=== PATIENT | male | born 1975 | race Caucasian/White ===

== ENCOUNTER 2021-03-03 11:49 | Emergency (ER) | payer OTHER, SELFPAY ==
[2021-03-03 11:49] VITALS: BP 134/73; PULSE 66; RESP 15; TEMP 36.2; O2SAT 98; BMI 22.4
--- NOTE | 2021-03-03 12:30 | CT_ITS ---
STUDY: CT BRAIN WITHOUT CONTRAST REASON FOR EXAM: Male, 45 years old. Numbness left side RADIATION DOSAGE (If Supplied By Facility): CTDIvol = ( 38.43 ) mGy, DLP = ( 741.51 ) mGycm TECHNIQUE: Transaxial CT imaging of the brain was performed without administration of intravenous contrast material. Individualized dose optimization techniques were used for this CT. COMPARISON: No relevant priors. FINDINGS: Normal soft tissue structures. Normal calvarium. Normal size ventricles and extra-axial spaces for the patient''s age. Normal white matter tracts of the cerebral hemispheres. Normal basal ganglia and thalami. Normal brainstem. Normal cerebellum. There is no intracranial hemorrhage. There are no findings of an acute ischemic infarction. Normal visualized paranasal sinuses. CT/Brain/Head without Contrast IMPRESSION: Normal unenhanced CT scan of the brain. Electronically Signed: Eddie Velazquez MD at 13:19 EDT , Service support ,
[2021-03-03 12:54] LABS: Absolute Lymphocyte Count 1.18 X10^3/uL (0.83-4.51); Absolute Neutrophil Count 4.2 X10^3/uL (2.0-7.7); Basophil# 0.03 X10^3/uL; Basophil% 0.5 % (0-1); Eosinophil# 0.13 X10^3/uL; Eosinophils% 2.1 % (0-5); Hematocrit 44.4 % (40-54); Hemoglobin 14.6 g/dL (13.0-16.5); Lymphocyte # 1.18 X10^3/ul (0.83-4.51); Lymphocyte % 19.5 % (19-41); Mean Corp Hgb Conc 32.9 g/dL (32-36); Mean Corpuscular Hgb 29.7 pg (27.0-32.0); Mean Corpuscular Volume 90.2 fL (80-94); Mean Platelet Vol. 10.9 fl (6.2-12.0); Monocyte# 0.54 X10^3/uL; Monocyte% 8.9 % (0-10); NRBC Flagged by Analyzer 0 % (0-5); Neutrophil # 4.15 X10^3/uL (2.7-7.7); Neutrophil % 68.7 % (47-70); Platelet Count 198 K/mm3 (150-450); RBC Distribution Width CV 12.8 % (11.6-14.6); RBC Distribution Width SD 42.1 fl (35.1-43.9); Red Blood Count 4.92 M/mm3 (4.6-6.2); White Blood Count 6.1 K/mm3 (4.4-11.0)
--- NOTE | 2021-03-03 13:43 | EX.ED.DYSGE1 ---
HPI History of Present Illness Chief Complaint: Numb/Ting Detail of Chief Complaint: Left-sided facial numbness Informant: patient Onset/Context/Timing Onset: Today and Hours Context: Sudden Onset Timing: Intermittent Quality: Tingling numbness over left cheek Location: Left maxillary region Current Severity: Mild Maximum Severity: Moderate Worsened by: Possibly sleeping on his hand Relieved by: Nothing Associated Symptoms Associated Symptoms: Had numbness in his arm. Please read HPI Narrative Narrative: Patient is a healthy 45-year-old male present on no medications who presents because of left-sided facial numbness upon awakening. Resolved after 2 minutes. He then felt an unusual sensation over the left maxillary area. There was no complaint of headache, ocular, visual or auditory symptoms. He denied trouble with speech or swallowing. He denied clumsiness. He then had numbness in his left arm which may be in a radicular pattern. He has had this in the past due to problems with his neck and he was last manipulated on February 27. He denies trouble with balance or falling. There is no history of head trauma. Prior similar symptoms: No Recent Illness/Hospitalization: No PFSH PFSH no medical history Allergy/AdvReac Type Severity Reaction Status Date / Time No Known Allergies Allergy Verified 03/03/21 11:52 Surgical History (Updated 03/03/21 @ 12:48 by Loretta Poole RN) History of vasectomy no surgical history Social History (Updated 03/03/21 @ 13:[address] Clyde Marcelo MD) household members: spouse and children Smoking Status: Never smoker alcohol intake: current alcohol intake frequency: a few times a month substance use type: does not use ROS ROS ED Constitutional Constitutional ED: Denies chills, fever(s), subjective, sweats or weight loss Eyes Eyes: Denies blurry vision, change in vision or diplopia ENT ENT ED: Denies ear pain, rhinorrhea or sore throat Cardiovascular Cardiovascular: Denies chest pain, orthopnea, palpitations or racing heartbeat Respiratory/Chest Respiratory/Chest: Denies cough, dyspnea, orthopnea or sputum Gastrointestinal Gastrointestinal: Denies abdominal pain, nausea or vomiting Genitourinary Genitourinary ED: Denies dysuria, hematuria or urinary frequency Musculoskeletal Musculoskeletal: Denies arthralgias, back pain, myalgias or neck pain Integumentary Denies rash Neurologic Neurologic: Reports paresthesias; Denies headache(s) or weakness Allergic/Immunologic Allergic/Immunologic ED: Denies urticaria EXAM Physical Exam Const Vital Signs: 03/03/21 11:49 Temperature 97.2 F L Temperature Source Temporal Pulse Rate 66 Respiratory Rate 15 Blood Pressure 134/73 H Blood Pressure Mean 93 Pulse Ox 98 Oxygen Delivery Method Room Air HEENT Reports TM's clear and moist mucous membranes HEENT Narrative: Ears normal. There is no asymmetry of the face. There is no evidence of trauma. Tympanic Membrane ED: Yes TM's clear Eyes PERRL and EOMs intact bilaterally Eyes Narrative: There is no APD. There is no nystagmus. There is no subconjunctival hemorrhage noted. General Eye ED: Negative for pale conjunctiva or scleral icterus Neck no lymphadenopathy, supple and no JVD Neck Narrative: There is no carotid bruit. Resp normal respiratory effort and clear to auscultation bilaterally Cardio regular rate, regular rhythm, S1 normal heart sound, S2 normal heart sound and no murmurs GI normal to inspection, nondistended, normoactive bowel sounds and non-tender Palpation: soft Back/Spine no CVA tenderness Cervical Spine: Negative for cervical spine tenderness Thoracic Spine / Upper Back: Negative for thoracic spinal tenderness or paraspinal muscle tenderness Extremity normal to inspection General Extremety ED: Negative for edema or tenderness General Extremity: Negative for edema Neuro oriented x3, CN's II-XII intact bilaterally and no sensory deficits noted Neuro Narrative: There is no dysmetria. There is no clonus. There is no Babinski sign noted. Speech is normal. Fluency is normal. Sensorium / Orientation: alert Motor Exam: strength 5/5 throughout Psych mental status grossly normal Skin no rashes or lesions noted MDM MDM MDM Narrative Medical decision making narrative: Patient with paresthesia. This may represent an early onset Cord[place]'s palsy. May also represent atypical presentation for CVA. CT of the head was obtained as well as appropriate blood work. Patient's work-up is negative. Plan is to discharge to home with appropriate home-going instructions. Lab Data Attestation: I reviewed the patient's lab results. Labs: Laboratory Results - last 24 hr 03/03/21 12:45 WBC 6.1 RBC 4.92 Hgb 14.6 Hct 44.4 MCV 90.2 MCH 29.7 MCHC 32.9 RDW Std Deviation 42.1 RDW Coeff of Catrachito 12.8 Plt Count 198 MPV 10.9 Immature Gran % (Auto) 0.300 Neut % (Auto) 68.7 Lymph % (Auto) 19.5 [place] % (Auto) 8.9 Eos % (Auto) 2.1 Baso % (Auto) 0.5 Absolute Neuts (auto) 4.2 Absolute Lymphs (auto) 1.18 Nucleated RBC % 0 Radiography Diagnostic Testing: Radiology Impression Brain CT 03/03/21 12:30 IMPRESSION: Normal unenhanced CT scan of the brain. Electronically Signed: Eddie Velazquez MD at 13:19 EDT , Service support , Discharge Plan Triage Chief Complaint: Numb/Ting ED Provider: Clyde Marcelo Dx/Rx/DC Orders Clinical Impression: Facial paresthesia, Arm paresthesia, left Instructions: ED Paraesthesias Primary Care Provider: Elias Puri Referrals: Elias Puri MD [Primary Care Provider] - 3-5 Days if not improving Disposition Disposition: Home, self care
[2021-03-03 14:29] VITALS: BP 118/71; PULSE 59; RESP 18
== END 2021-03-03 14:30 | disposition home or self-care (01) ==
PROVIDERS: Emergency Provider Emergency Medicine; PCP Family Medicine
DX: R20.2 Paresthesia of skin (principal)
CPT/HCPCS: 70450; 85025; 99283; A4216

== ENCOUNTER → 2021-06-16 | Outpatient (CLI) | payer OTHER, SELFPAY | END | disposition home or self-care (01) | LOC: LABSPEC 08:30 | PROVIDERS: PCP Family Medicine; Referring Provider Physician Assistant Surgical; Visit Provider Physician Assistant Surgical | DX: Z20.822 Contact with and (suspected) exposure to COVID-19 (principal) | CPT/HCPCS: 87635; U0005; U0003 ==

== ENCOUNTER 2021-11-23 11:59 | Emergency (ER) | payer OTHER, SELFPAY ==
[2021-11-23 11:59] VITALS: BP 122/73; PULSE 71; RESP 16; TEMP 36.7; O2SAT 100; BMI 23.1
--- NOTE | 2021-11-23 12:23 | RAD_ITS ---
HISTORY: leg trauma. TECHNIQUE: XR Tibia/Fibula 2 Views. Number of images including paperwork: 5. COMPARISON: None. FINDINGS: OSSEOUS STRUCTURES: No acute fracture. Mineralization unremarkable. JOINT SPACES: Maintained. No dislocation. RAD/Tibia & Fibula 2 Views IMPRESSION: No acute fracture or dislocation identified in the right leg. at 1309 Reported and signed by: Jacy Watson MD Electronically Signed: Jacy Watson MD at 13:08 EST ,
--- NOTE | 2021-11-23 12:23 | ED.VIS.FALL ---
HPI HPI - Fall History of Present Illness Chief Complaint: Fall Informant: patient Occured/Mechanism Occurred: Days Usually ambulates: Without assistance Pain/Injury Pain Location: lower extremity Quality of Pain: Sharp Current Severity: Mild Maximum Severity: Moderate Associated Symptoms Associated Symptoms: Negative for Parasthesias, Weakness, Loss of function, Inability to ambulate, Loss of consciousness and Amnesia Narrative Narrative: 46-year-old male was working on a trailer on Wednesday it was icy slipped and his leg when he fell banged the trailer and he has pain and swelling to his right lower leg. Is initially did not think much of it but has been walking on it more the last 2 days he has had increased pain and went to have evaluated. He denies any other injuries. Did not hit his head, chest or abdomen. No LOC. Prior similar symptoms: No Recent Illness/Hospitalization: No PFSH PFSH Medical History no medical history no medical history Home Medications NK 06/14/21 [History Last Taken Unknown] Allergy/AdvReac Type Severity Reaction Status Date / Time No Known Allergies Allergy Verified 11/23/21 12:02 Surgical History History of vasectomy Social History household members: spouse and children Smoking Status: Never smoker alcohol intake: current alcohol intake frequency: a few times a month substance use type: does not use ROS ROS ED ROS Narrative No recent illness. Review of Systems ROS Unobtainable: Denies due to encephalopathy Constitutional Constitutional ED: Denies fever(s) Eyes Eyes: Denies change in vision ENT ENT ED: Denies ear pain Cardiovascular Cardiovascular: Denies chest pain Respiratory/Chest Respiratory/Chest: Denies dyspnea Gastrointestinal Gastrointestinal: Denies abdominal pain Genitourinary Genitourinary ED: Denies dysuria Musculoskeletal Musculoskeletal: Denies myalgias Integumentary Denies rash Neurologic Neurologic: Denies headache(s) Psychiatric Psychiatric: Denies depression Endocrine Endocrinology: Denies polyuria Hematologic/Lymphatic Hematologic/Lymphatic: Denies easy bruising Allergic/Immunologic Allergic/Immunologic ED: Denies urticaria EXAM Physical Exam Narrative Exam Narrative: Further male no acute distress vital signs stable afebrile. HEENT exam unremarkable atraumatic. Pupils round reactive light. C-spine nontender. Trachea midline. Back nontender. Lungs clear to auscultation bilaterally. Chest wall nontender. Heart regular rhythm rate about 70 no murmur. Abdomen soft nontender no trauma. Pelvic girdle intact. Moving all four extremities. His right lower leg midportion on the medial aspect there is a contusion and abrasion. No bleeding. Small area of bruising. No gross bony deformity. He has full flexion-extension of his right hip, knee ankle and foot. Dorsi plantarflexion intact. He has tenderness at the site. No bony deformity. Const Vital Signs: 11/23/21 11:59 Temperature 98.1 F Temperature Source Temporal Pulse Rate 71 Respiratory Rate 16 Blood Pressure 122/73 H Blood Pressure Mean 89 Pulse Ox 100 Oxygen Delivery Method Room Air Positive well nourished and well developed; Negative for obese, cachectic, contractures or unkempt General Appearance ED: well developed and NAD; Negative for unkempt, cachectic or contractures Nutritional Appearance: Negative for cachectic or obese HEENT Reports normocephalic atraumatic; Negative for trauma or tenderness Eyes PERRL and EOMs intact bilaterally Neck full ROM, no lymphadenopathy and supple General: Negative for tenderness Chest Wall inspection of chest normal and palpation of chest normal Resp normal respiratory effort, no retractions and clear to auscultation bilaterally Auscultation: Negative for rales, rhonchi or wheezes Cardio regular rate, regular rhythm, S1 normal heart sound, S2 normal heart sound and no murmurs GI non-tender, non-distended and no masses Auscultation: normoactive bowel sounds Palpation: soft; Negative for guarding or rebound tenderness present Back/Spine no CVA tenderness General Back: Negative for CVA tenderness Cervical Spine: Negative for cervical spine tenderness Thoracic Spine / Upper Back: Negative for thoracic spinal tenderness Lumbar Spine / Lower Back: Negative for lumbar spinal tenderness or paraspinal muscle tenderness Extremity normal to inspection, full ROM, no calf tenderness and no pedal edema Extremity Narrative: Right lower leg medial aspect midportion contusion and abrasion. No bleeding. Small hematoma. Mild tenderness. No bony deformity. Normal range of motion. Neurovascular intact. Neuro oriented x3, CN's II-XII intact bilaterally, moves all extremities and no focal motor deficits Neuro Narrative: GCS 15. Sensorium / Orientation: alert, oriented to person, oriented to place and oriented to time; Negative for orientation impaired, confused, lethargic or stuporous Psych mental status grossly normal and thought process normal Appearance: Negative for unkempt Skin Lesions: no lesions and No lesion noted Rashes: no rashes and No rashes noted Trauma: abrasion MDM MDM MDM Narrative Medical decision making narrative: Patient fell on Wednesday hit his right leg against a trailer and has pain and mild swelling. X-ray will be obtained of the right tib-fib. Repeat exam doing well. Discharged home. Radiography Diagnostic Testing: Right tib-fib x-ray two views interpreted by myself shows no acute abnormality. No fracture. Discharge Plan Triage Chief Complaint: Fall ED Provider: Sameer Cohn Dx/Rx/DC Orders Clinical Impression: Contusion of right lower extremity Instructions: ED Contusion, Lower Extremity Prescriptions: No Action NK RF: 0 Primary Care Provider: Elias Puri Referrals: Elias Puri MD [Primary Care Provider] - 1 Week if not improving Activity Restrictions/Additional Instructions: Ice and elevate. Motrin and Tylenol for pain. Keep the wound clean and apply antibiotic ointment. Disposition Disposition: Home, Self Care
== END 2021-11-23 12:55 | disposition home or self-care (01) ==
PROVIDERS: Emergency Provider Emergency Medicine; PCP Family Medicine; Visit Provider Emergency Medicine
DX: S80.11XA Contusion of right lower leg, initial encounter (principal); M79.89 Other specified soft tissue disorders; W00.0XXA Fall on same level due to ice and snow, initial encounter; W01.198A Fall on same level from slipping, tripping and stumbling with subsequent striking against other object, initial encounter
CPT/HCPCS: 73590; 99282

== ENCOUNTER 2022-01-26 09:09 | Day surgery (SDC) | payer OTHER, SELFPAY ==
--- NOTE | 2022-01-26 09:21 | HP.PCM_ITS ---
HPI - General HPI Narrative NIESHA VALENTINE, is a 46 M who presents for screening colonoscopy. Patient never had previous colonoscopy. Denies a family history of colon cancer?patient's father did have part of his colon removed in his 70s but it was benign/precancerous per patient. Patient previously had a contrast study in his 20s sounds like upper and barium enema. Patient denies any chronic abdominal pain/nausea/vomiting/reflux. Patient's bowel movements daily denies any blood. [facility] Medical History (Updated 01/26/22 @ 09:[address] Maura Bryson MD) Alcohol use Dietary restriction History of IBS Leg cramps Non-smoker Wears glasses Home Medications fluticasone propionate [Flonase Allergy Relief] 1 spray INTRANASAL DAILY 01/23/22 [History Last Taken Unknown] hyoscyamine sulfate 0.125 mg PO PRN PRN 01/23/22 [History Last Taken Unknown] Allergy/AdvReac Type Severity Reaction Status Date / Time No Known Allergies Allergy Verified 01/26/22 09:45 Surgical History (Updated 01/23/22 @ 09:10 by Lorena Trivedi) History of vasectomy Hx of wisdom tooth extraction Social History household members: spouse and children Smoking Status: Never smoker alcohol intake: current alcohol intake frequency: a few times a month substance use type: does not use Past Medical/Surgical History Planned Operation Planned Operative Procedure/s: CSCOPE OA Previous Hospitalizations/Surgeries HX Hospitalizations: No Any Problems With Anesthesia: No You/Your Family Experience Fever (Hyperthermia) With Anes: No Cholinesterase deficiency: No Cardiovascular Hx Heart Attack: No Hx Hypertension: No Respiratory Hx Chronic Obstructive Pulmonary Disease (COPD): No Hx Asthma: No Hx Emphysema: No Hx Sleep Apnea: No Hx Respiratory Tract Infection/Cold (presently): No Do You Snore Loudly (louder than talking or can be heard): No Do You Often Feel Tired/ Fatigued/ Sleepy Dring Daytime?: No Has Anyone Observed You Stop Breathing During Sleep?: No Result (for STOP score): Negative Smoking Status: Never smoker Neurological Hx Seizures: No Does patient have nerve stimulator: No Reproduction : No Allergies No Known Allergies Allergy (Verified 01/26/22 09:45) Discharge Is Pt Admitted From a Intermediate, or a Senior Living: No After D/C, Where Do you Plan to Go: Return Home Physical Exam Const alert, oriented x3 and no apparent distress HEENT normocephalic and head/scalp atraumatic Resp normal respiratory effort Cardio regular rate GI soft to palpation and non-tender; Negative for non-distended Palpation: Negative for guarding Extremity no clubbing, cyanosis or edema Neuro CN's II-XII intact bilaterally Psych mental status grossly normal Assessment & Plan Assessment/Plan (1) Screening for colon cancer: Procedure Criteria Type of Procedure Procedure Type: Elective Elective Risks - COVID COVID Risk Discussion: The surgeon/proceduralist and patient have discussed in detail the risk of exposure to and/or potential harm posed by the COVID-19 virus with having a surgery/procedure at this time versus the risk of delaying the surgery/procedure. It is not possible to know either the risk of delaying the surgery or procedure or chance of getting an infection with perfect accuracy, but a joint decision was made between the patient and the surgeon/proceduralist to proceed at this time with the scheduled surgery/procedure as indicated on the consent form. Surgery Risks - Colonoscopy Risks Include but are not Limited To: Risks include but are not limited to: Bleeding, perforation requiring further surgery, inability to complete colonoscopy requiring barium enema.
[2022-01-26 09:46] VITALS: BP 120/70; PULSE 64; RESP 18; TEMP 36; O2SAT 95; BMI 22.4
[2022-01-26] MEDS: Lactated Ringers 1,000 ML 15 ML IV (09:50)
[2022-01-26 10:27] VITALS: BP 110/69; BP 120/70; PULSE 65; RESP 16; TEMP 36.8; O2SAT 98
--- NOTE | 2022-01-26 10:27 | OP.CCLET_ITS ---
01/26/2022 Elias Puri Re : Colonoscopy procedure for Jose Enrique Mcqueen Dear Jaxson This procedure was performed on Wednesday, January 26, 2022. My impressions and recommendations are as follows: Impressions : - Hemorrhoids found on perianal exam. - Non-bleeding internal hemorrhoids. - The entire examined colon is normal. - No specimens collected. Recommendations : - Discharge patient to home. - Resume previous diet. - Continue present medications. - Repeat colonoscopy in 10 years for screening purposes. My findings are described in the full procedure note, which is enclosed. If I can be of further assistance, please feel free to contact me at Doctor phone number(s): , Work: . Sincerely, MD Maura Taylor MD 01/26/2022 10:27:16 AM This report has been signed electronically.
--- NOTE | 2022-01-26 10:27 | OP.COLON_ITS ---
Patient Name: Jose Enrique Mcqueen Procedure Date: 01/26/2022 9:55 AM Date of : 1975 Age: 46 Procedure: Colonoscopy Indications: Screening for colorectal malignant neoplasm Providers: Maura Bryson MD Medicines: Monitored Anesthesia Care Patient Profile: This is a 46 year old male. Last Colonoscopy: none. The patient's first colonoscopy is today. Complications: No immediate complications. Procedure: Pre-Anesthesia Assessment: - Prior to the procedure, a History and Physical was performed, and patient medications and allergies were reviewed. The patient's tolerance of previous anesthesia was also reviewed. The risks and benefits of the procedure and the sedation options and risks were discussed with the patient. All questions were answered, and informed consent was obtained. Prior Anticoagulants: The patient has taken no previous anticoagulant or antiplatelet agents. ASA Grade Assessment: Per anesthesia. After reviewing the risks and benefits, the patient was deemed in satisfactory condition to undergo the procedure. After I obtained informed consent, the scope was passed under direct vision. Throughout the procedure, the patient's blood pressure, pulse, and oxygen saturations were monitored continuously. The colonoscope was introduced through the anus and advanced to the cecum, identified by the appendiceal orifice, ileocecal valve and palpation. The colonoscopy was performed without difficulty. The patient tolerated the procedure well. The quality of the bowel preparation was good. Scope In: 10:04:41 AM Scope Withdrawal Time 0 hours 8 minutes 49 seconds Scope Out: 10:23:25 AM Total Procedure Duration Time 0 hours 18 minutes 44 seconds Findings: Hemorrhoids were found on perianal exam. Non-bleeding internal hemorrhoids were found. The hemorrhoids were Grade I (internal hemorrhoids that do not prolapse). The entire examined colon appeared normal. Impression: - Hemorrhoids found on perianal exam. - Non-bleeding internal hemorrhoids. - The entire examined colon is normal. - No specimens collected. Recommendation: - Discharge patient to home. - Resume previous diet. - Continue present medications. - Repeat colonoscopy in 10 years for screening purposes. Procedure Code(s): --- Professional --- G0121, PT, Colorectal cancer screening; colonoscopy on individual not meeting criteria for high risk Diagnosis Code(s): --- Professional --- Z12.11, Encounter for screening for malignant neoplasm of colon K64.0, First degree hemorrhoids CPT copyright 2017 [employer]. All rights reserved. The codes documented in this report are preliminary and upon client care consultant review may be revised to meet current compliance requirements. MD Maura Taylor MD 01/26/2022 10:27:16 AM This report has been signed electronically. Number of Addenda: 0 Note Initiated On: 01/26/2022 9:55 AM
[2022-01-26 10:30] VITALS: BP 107/70; BP 120/70; PULSE 63; RESP 16; O2SAT 98
[2022-01-26 10:35] VITALS: BP 113/66; BP 120/70; PULSE 73; RESP 16; O2SAT 100
[2022-01-26 10:40] VITALS: BP 106/71; BP 120/70; PULSE 57; RESP 16; TEMP 36.7; O2SAT 99
[2022-01-26 10:59] VITALS: BP 120/70
== END 2022-01-26 11:25 | disposition home or self-care (01) ==
LOC: EN 09:17 → AC 09:19
PROVIDERS: PCP Family Medicine; Referring Provider Family Medicine; Visit Provider Surgery
PROC: 0DJD8ZZ Inspection of Lower Intestinal Tract, Via Natural or Artificial Opening Endoscopic (ICD-10-PCS; CPT 45378; principal; 2022-01-26 10:25)
DX: Z12.11 Encounter for screening for malignant neoplasm of colon (principal); K64.0 First degree hemorrhoids; Z87.19 Personal history of other diseases of the digestive system
CPT/HCPCS: 45378; 87426; J7120; J2405

== ENCOUNTER → 2024-11-29 | Outpatient (CLI) | payer OTHER, SELFPAY ==
[2024-11-29 12:10] LABS: Color, Urine Yellow (Yellow); Glucose, Dipstick Normal (Normal); Ketone-Dipstick Negative (Negative); Leukocyte Esterase-Dipstick Negative /ul (Negative); Nitrite-Dipstick Negative (Negative); Occult Blood-Urine Negative /ul (Negative); Protein-Dipstick Negative (Negative); Specific Gravity, Urine 1.005 (1.002-1.030); Urine Bilirubin Dipstick Negative (Negative); Urine Clarity Clear (Clear); Urine Urobilinogen Normal (Normal)
[2024-11-29 12:33] LABS: Absolute Lymphocyte Count 1.51 X10^3/uL (0.83-4.51); Absolute Neutrophil Count 2.8 X10^3/uL (2.0-7.7); Basophil# 0.03 X10^3/uL; Basophil% 0.6 % (0-1); Eosinophil# 0.09 X10^3/uL; Eosinophils% 1.9 % (0-5); Hematocrit 44.7 % (40-54); Hemoglobin 14.7 g/dL (13.0-16.5); Lymphocyte # 1.51 X10^3/ul (0.83-4.51); Lymphocyte % 31.3 % (19-41); Mean Corp Hgb Conc 32.9 g/dL (32-36); Mean Corpuscular Hgb 29.8 pg (27.0-32.0); Mean Corpuscular Volume 90.7 fL (80-94); Monocyte% 8.3 % (0-10); NRBC Flagged by Analyzer 0 % (0-5); Neutrophil # 2.78 X10^3/uL (2.7-7.7); Neutrophil % 57.7 % (47-70); Platelet Count 195 K/mm3 (150-450); RBC Distribution Width CV 13.2 % (11.6-14.6); RBC Distribution Width SD 43.5 fl (35.1-43.9); Red Blood Count 4.93 M/mm3 (4.6-6.2); White Blood Count 4.8 K/mm3 (4.4-11.0)
[2024-11-29 13:20] LABS: ALB/GLOB Ratio 1.7 RATIO (0.9-2.4); AST(SGOT) 24 U/L (<=37); Alanine Aminotransfer ALT/SGPT 25 U/L (<=46); Albumin, Serum 4.5 g/dL (3.5-5.0); Alkaline Phosphatase 51 U/L (40-129); Anion Gap 11 (5-15); BUN 16 mg/dL (4-19); BUN/Creat Ratio 18.7 RATIO (10-20); Calcium,Total 9.7 mg/dL (7.6-11.0); Chloride 104 mmol/L (98-108); Cholesterol 204 mg/dL (<=200); Creatinine, Serum 0.87 mg/dL (0.70-1.20); EST Glomerular Filtration Rate 105 (>60); Globulin 2.7 g/dL (2.2-4.2); Glucose 88 mg/dL (70-99); High Density Lipoprotein 89 mg/dL; Low Density Lipoprotein Calc. 103 mg/dL; PSA,Total - Annual Screen 0.64 ng/mL (0.02-4.00); Potassium 4.9 mmol/L (3.3-5.1); Protein, Total 7.2 g/dL (5.9-8.4); Sodium Level 142 mmol/L (133-145); Total Bilirubin 0.57 mg/dL (0.00-1.30); Triglycerides 59 mg/dL; Very Low Density Lipoprotein 12 mg/dL (5-40); cholesterol:hdl ratio screen 2.29
== END | disposition home or self-care (01) ==
LOC: BFHLAB 09:15
PROVIDERS: PCP Family Medicine; Visit Provider Family Medicine
DX: Z00.00 Encounter for general adult medical examination without abnormal findings (principal); Z12.5 Encounter for screening for malignant neoplasm of prostate
CPT/HCPCS: 36415; 80053; 80061; 81002; 84153; 84443; 85025; G0103

== ENCOUNTER → 2025-04-16 | Outpatient (CLI) | payer OTHER, SELFPAY ==
--- NOTE | 2025-04-16 08:55 | US_ITS ---
PROCEDURE: TESTICULAR WITH ARTERIAL FLOW 04/16/2025 REASON FOR EXAM: TESTICULAR LUMP; Left Side TECHNIQUE: TESTICULAR WITH ARTERIAL FLOW COMPARISON: None. FINDINGS: Bilateral testes have a normal symmetric sonographic appearance. Homogeneous parenchymal echotexture. Normal symmetric blood flow bilaterally on color Doppler. Small simple appearing cystic focus within the periphery of the left testicle measuring up to 5 mm, benign. The right testicle measures 4.3 x 2.9 x 2.1 cm. The left testicle measures 4.2 x 3.2 x 2.5 cm. Bilateral epididymi have a normal symmetric appearance, with symmetric vascular flow on color Doppler. There is a simple appearing right epididymal head cyst measuring up to 0.7 cm. Normal physiologic amount of fluid around both testes. No extratesticular mass. No evidence for varicocele on either side. Mild nonspecific generalized scrotal subcutaneous edema. US/Testicular with Arterial Flow IMPRESSION: No significant abnormality. Small 5 mm simple cyst within the periphery of the left testicle, which may reflect a palpable abnormality as per the clinical history. No follow-up indicated. Reading Location: [id number]
--- OUTSIDE RECORDS SUMMARY | 2025-04-16 13:10 | XMS RPT_ITS | CCD ---
Author Organization [facility] Care Team Providers Care Venue Manager Name Role Phone Dr. Elias Puri Primary Care Provider [phone] Dr. Elias Puri Referring Provider Nurse, Surgery Attending Provider Unavailable Dr. Maura Bryson Attending Provider [phone] Dr. Maura Bryson Other Provider Dr. Elias Puri MD Primary Care Provider Unava ilable Dr. Jae Evans DO Attending Provider [phone] Lamberto Claire Attending Unavailable Elias Puri Referring Unavailable Elias Puri Primary Care Unavailable Jae Evans Attending Unavailable Elias Puri Primary Care Unavailable Jae Evans Attending Unavailable Jae Evans Primary Care Unavailable Jae Evans Referring Unavailable Medications Current Medications Medication Drug Class(es) Dates Sig (Normalized) Sig (Original) fluticasone propionate 0.05 mg/actuat metered dose nasal spray (2 sources) Corticosteroid Start: 01-23-2022 Fluticasone Propionate (Flonase Allergy Relief) 50 mcg/actuation Orange,Suspension Active 1 SPRAY INTRANASAL DAILY January 23, 2022 9:01am Start: 01-23-2022 Fluticasone Pr opionate (Flonase Allergy Relief) 50 mcg/actuation Orange,Suspension Active 1 NMA INTRANASAL DAILY January 23, 2022 12:00am hyoscyamine sulfate 0.125 mg oral tablet (2 sources) Start: 01-23-2022 Hyoscyamine Ruiz lfate Active 0.125 MG PO NEEDED January 23, 2022 9:01am Problems Problem Classification Problem Date Documented Date Episodic/Chronic Administrative/social admission (2 sources) Administrative reason for encounter; Translations: [Encounter for examination for driving license] 08-05-2020 Episodic Immunizations and screening for infectious disease (2 sources) Contact with or exposure to other viral diseases; Translations: [Exposure to COVID-19 virus] 06-14-2021 Episodic Other male genital disorders (1 source) Other specified disorders of the male genital organs; Translations: [Other specified disorders of the male genital organs] Onset: 04-12-2025 Episodic Other nervous system disorders (2 sources) Facial paresthesia; Translations: [Paresthesia of skin] 03-03-2021 Episodic Other nervous system disorders (2 sources) Paresthesia of left upper limb; Translations: [Paresthesia of skin] 03-03-2021 Episodic Other screening for suspected conditions (not mental disorders or infectious disease) (3 sources) Patient encounter status; Translations: [Encounter for screening for malignant neoplasm of colon] Episodic Superficial injury; contusion (2 sources) Contusion of lower limb; Translations: [Contusion of right lower leg, initial encounter] 12-01-2021 Episodic Results Test Name Value Interpretation Reference Range Facility Absolute neutrophil countOrd ered By: Jae Evans on 11-29-2024 Neutrophils (Bld) [#/Vol] 2.8 10*3/uL 2.0-7.7 [facility] Anion gap in Serum or Plasma Ordered By: Jae Evans on 11-29-2024 Anion gap [Moles/Vol] 11 mmol/L 5-15 [facility] BUN/creatinine ratioOrdered By: Jae Evans on 11-29-2024 Urea nitrogen/Creatinine [Mass ratio] 18.7 mg/mg 10-20 [facility] Basophil percentageOrdered B y: Jae Evans on 11-29-2024 Basophils/100 WBC (Bld) 0.6 % 0-1 [facility] Bilirubin Test strip Ql (U)O rdered By: Jae Evans on 11-29-2024 Bilirubin Ql (U) Negative Negative [facility] Bilirubin, totalOrdered By: Jae Evans on 11-29-2024 Bilirubin [Mass/Vol] 0.57 mg/dL 0.00-1.30 [facility] CBC W/Diff, Automatedon Absolute Lymph 1.51 X10 3/uL Normal 0.83-4.51 [facility] Comment on above: Performed By: #### L 501.5960, L100.0100, L400.2010, L500.4100, L500.4050, L501.9520 #### [facility] [address] [place], [address] Absolute Neut 2.8 X10 3/uL Normal 2.0-7.7 [facility] Comment on above: Performed By: #### L 501.9910, L100.0100, L400.2010, L500.4100, L500.4050, [id number] #### [facility] [address] [place], [address] Basophils/100 WBC (Bld) 0.6 % Normal 0-1 [facility] Comment on above: Performed By: #### L 501.9910, L100.0100, L400.2010, L500.4100, L500.4050, [id number] #### [facility] [address] [place], [address] Eosinophils/100 WBC (Bld) 1.9 % Normal 0-5 [facility] Comment on above: Performed By: #### L 501.9910, L100.0100, L400.2010, L500.4100, L500.4050, L501.9520 #### [facility] [address] [place], [address] Erythrocyte distribution width (RBC) [Ratio] 13.2 % Normal 11.6-14.6 [facility] Comment on above: Performed By: #### L 501.9910, L100.0100, L400.2010, L500.4100, L500.4050, [id number] #### [facility] [address] [place], [address] Hematocrit (Bld) [Volume fraction] 44.7 % Normal 40-54 [facility] Comment on above: Performed By: #### L 501.9910, L100.0100, L400.2010, L500.4100, L500.4050, [id number] #### [facility] [address] [place], [address] Hemoglobin (Bld) [Mass/Vol] 14.7 g/dL Normal 13.0-16.5 [facility] Comment on above: Performed By: #### L 501.9910, L100.0100, L400.2010, L500.4100, L500.4050, [id number] #### [facility] [address] [place], [address] IG% 0.200 Normal 0.0-0.9 [facility] Comment on above: Result Comment: IG% - Immature Granulocytes (promyelocytes, myelocytes and metamyelocytes) > 1% indicates that a LEFT SHIFT is Present. Performed By: #### L 501.9910, L100.0100, L400.2010, L500.4100, L500.4050, L501.9520 #### [facility] [address] [place], [address] Lymphocytes/100 WBC (Bld) 31.3 % Normal 19-41 [facility] Comment on above: Performed By: #### L 501.9910, L100.0100, L400.2010, L500.4100, L500.4050, [id number] #### [facility] [address] [place], [address] MCH (RBC) [Entitic mass] 29.8 pg Normal 27.0-32.0 [facility] Comment on above: Performed By: #### L 501.9910, L100.0100, L400.2010, L500.4100, L500.4050, [id number] #### [facility] [address] [place], [address] MCHC (RBC) [Mass/Vol] 32.9 g/dL Normal 32-36 [facility] Comment on above: Performed By: #### L 501.9910, L100.0100, L400.2010, L500.4100, L500.4050, [id number] #### [facility] [address] [place], [address] MCV (RBC) [Entitic vol] 90.7 fL Normal 80-94 [facility] Comment on above: Performed By: #### L 501.9910, L100.0100, L400.2010, L500.4100, L500.4050, [id number] #### [facility] [address] [place], [address] Monocytes/100 WBC (Bld) 8.3 % Normal 0-10 [facility] Comment on above: Performed By: #### L 501.9910, L100.0100, L400.2010, L500.4100, L500.4050, [id number] #### [facility] [address] [place], [address] Neutrophils/100 WBC (Bld) 57.7 % Normal 47-70 [facility] Comment on above: Performed By: #### L 501.9910, L100.0100, L400.2010, L500.4100, L500.4050, [id number] #### [facility] [address] [place], [address] Nucleated RBC (Bld) [#/Vol] 0 10*3/uL Normal 0-5 [facility] Comment on above: Performed By: #### L 501.9910, L100.0100, L400.2010, L500.4100, L500.4050, [id number] #### [facility] [address] [place], [address] Platelet mean volume (Bld) [Entitic vol] 12.0 fL Normal 6.2-12.0 [facility] Comment on above: Performed By: #### L 501.9910, L100.0100, L400.2010, L500.4100, L500.4050, [id number] #### [facility] [address] [place], [address] Platelets (Bld) [#/Vol] 195 10*3/uL Normal 150-450 [facility] Comment on above: Performed By: #### L 501.9910, L100.0100, L400.2010, L500.4100, L500.4050, [id number] #### [facility] [address] [place], [address] RBC (Bld) [#/Vol] 4.93 10*6/uL Normal 4.6-6.2 [facility] Comment on above: Performed By: #### L 501.9910, L100.0100, L400.2010, L500.4100, L500.4050, [id number] #### [facility] [address] [place], [address] RDW SD 43.5 fl Normal 35.1-43.9 [facility] Comment on above: Performed By: #### L 501.9910, L100.0100, L400.2010, L500.4100, L500.4050, [id number] #### [facility] [address] [place], [address] WBC (Bld) [#/Vol] 4.8 10*3/uL Normal 4.4-11.0 [facility] Comment on above: Performed By: #### L 501.9910, L100.0100, L400.2010, L500.4100, L500.4050, [id number] #### [facility] [address] [place], [address] Calculated very low density lipoprotein (VLDL) cholesterol measurementOrdered By: Jae Evans on 11-29-2024 VLDL Cholesterol 12 mg/dL 5-40 [facility] Carbon dioxide, total [Moles /volume] in Central venous bloodOrdered By: Jae Evans on 11-29-2024 CO2 [Moles/Vol] 27.0 mmol/L 21.0-32.0 [facility] Chloride assayOrdered By: Shellie Evans on 11-29-2024 Chloride [Moles/Vol] 104 mmol/L 98-108 [facility] Comprehensive Metabolic Prof ilon 11-29-2024 Albumin [Mass/Vol] 4.5 g/dL Normal 3.5-5.0 [facility] Comment on above: Performed By: #### L 501.9910, L100.0100, L4, L500.4100, L500.4050, [id number] #### [facility] [address] [place], [address] Albumin/Globulin [Mass ratio] 1.7 {ratio} Normal 0.9-2.4 [facility] Comment on above: Performed By: #### L 501.9910, L100.0100, L400.2010, L500.4100, L500.4050, [id number] #### [facility] [address] [place], [address] ALK PHOS 51 U/L Normal 40-129 [facility] Comment on above: Performed By: #### L 501.9910, L100.0100, L4, L500.4100, L500.4050, [id number] #### [facility] [address] [place], [address] ALT [Catalytic activity/Vol] 25 U/L Normal <=46 [facility] Comment on above: Performed By: #### L 501.9910, L100.0100, L400.2010, L500.4100, L500.4050, [id number] #### [facility] [address] [place], [address] AST [Catalytic activity/Vol] 24 U/L Normal <=37 [facility] Comment on above: Performed By: #### L 501.9910, L100.0100, L4, L500.4100, L500.4050, [id number] #### [facility] [address] [place], [address] Bilirubin [Mass/Vol] 0.57 mg/dL Normal 0.00-1.30 [facility] Comment on above: Performed By: #### L 501.9910, L100.0100, L4, L500.4100, L500.4050, [id number] #### [facility] [address] [place], [address] BUN/CRE 18.7 RATIO Normal 10-20 [facility] Comment on above: Performed By: #### L 501.9910, L1.99, L4, L500.4100, L500.4050, [id number] #### [facility] [address] [place], [address] Calcium [Mass/Vol] 9.7 mg/dL Normal 7.6-11.0 [facility] Comment on above: Performed By: #### L 501.9910, L100.99, L4, L500.4100, L500.4050, [id number] #### [facility] [address] [place], [address] Chloride [Moles/Vol] 104 mmol/L Normal 98-108 [facility] Comment on above: Performed By: #### L 501.9910, L100.0100, L4, L500.4100, L500.4050, [id number] #### [facility] [address] [place], [address] CO2 [Moles/Vol] 27.0 mmol/L Normal 21.0-32.0 [facility] Comment on above: Performed By: #### L 501.9910, L100.0100, L400.2010, L500.4100, L500.4050, [id number] #### [facility] [address] [place], [address] Creatinine [Mass/Vol] 0.87 mg/dL Normal 0.70-1.20 [facility] Comment on above: Performed By: #### L 501.9910, L100.0100, L400.2010, L500.4100, L500.4050, [id number] #### [facility] [address] [place], [address] GAP 11 Normal 5-15 [facility] Comment on above: Performed By: #### L 501.9910, L100.0100, L400.2010, L500.4100, L500.4050, L501.9520 #### [facility] [address] [place], [address] GFR/1.73 sq M.predicted among non-blacks MDRD (S/P/Bld) [Vol rate/Area] 105 mL/min/{1.73_m2} Normal >60 [facility] Comment on above: Result Comment: mL/m in/1.73m2 CKD-EPI Creatinine Equation (2020) Performed By: #### L 501.9910, L100.0100, L400.2010, L500.4100, L500.4050, L501.9520 #### [facility] [address] [place], [address] Globulin (S) [Mass/Vol] 2.7 g/dL Normal 2.2-4.2 [facility] Comment on above: Performed By: #### L 501.9910, L100.0100, L400.2010, L500.4100, L500.4050, L501.9520 #### [facility] [address] [place], [address] Glucose [Mass/Vol] 88 mg/dL Normal 70-99 [facility] Comment on above: Performed By: #### L 501.9910, L100.0100, L400.2010, L500.4100, L500.4050, L501.9520 #### [facility] [address] [place], [address] Potassium [Moles/Vol] 4.9 mmol/L Normal 3.3-5.1 [facility] Comment on above: Performed By: #### L 501.9910, L100.0100, L400.2010, L500.4100, L500.4050, [id number] #### [facility] [address] [place], [address] Sodium [Moles/Vol] 142 mmol/L Normal 133-145 [facility] Comment on above: Performed By: #### L 501.9910, L100.0100, L400.2010, L500.4100, L500.4050, L501.9520 #### [facility] [address] [place], [address] T PROT 7.2 g/dL Normal 5.9-8.4 [facility] Comment on above: Performed By: #### L 501.9910, L100.0100, L400.2010, L500.4100, L500.4050, L501.9520 #### [facility] [address] [place], [address] Urea nitrogen [Mass/Vol] 16 mg/dL Normal 4-19 [facility] Comment on above: Performed By: #### L 501.9910, L100.0100, L400.2010, L500.4100, L500.4050, L501.9520 #### [facility] [address] [place], [address] Eosinophil percentageOrdered By: Jae Evans on 11-29-2024 Eosinophils/100 WBC (Bld) 1.9 % 0-5 [facility] Erythrocyte distribution wid th ratioOrdered By: Jae Evans on 11-29-2024 Erythrocyte distribution width (RBC) [Ratio] 13.2 % 11.6-14.6 [facility] Erythrocyte distribution wid th standard deviationOrdered By: Jae Evans on 11-29-2024 Erythrocyte distribution width (RBC) [Entitic vol] 43.5 fL 35.1-43.9 [facility] GFR/1.73 sq M.predicted abbi g non-blacks MDRD (S/P/Bld) [Vol rate/Area]Ordered By: Jae Evans on 11-29-2024 Estimated GFR (MDRD) Non-Af Amer [address] [facility] Comment on above: mL/min/1.73m2 CKD-EP I Creatinine Equation (2020) Glucose Ql (U)Ordered By: Shellie Evans on 11-29-2024 Urine Glucose (UA) Normal mg/dl Normal [facility] Hematocrit Auto (Bld) [Volum e fraction]Ordered By: Jae Evans on 11-29-2024 Hematocrit (Bld) [Volume fraction] 44.7 % 40-54 [facility] Hemoglobin measurementOrdere d By: Jae Evans on 11-29-2024 Hemoglobin (Bld) [Mass/Vol] 14.7 g/dL 13.0-16.5 [facility] Immature granulocytes/100 WB C Auto (Bld)Ordered By: Jae Evans on 11-29-2024 Immature granulocytes/100 WBC (Bld) 0.200 % 0.0-0.9 [facility] Comment on above: IG% - Immature Granu locytes (promyelocytes, myelocytes and metamyelocytes) > 1% indicates that a LEFT SHIFT is Present. Ketones Test strip Ql (U)Ord ered By: Jae Evans on 11-29-2024 Ketones Ql (U) Negative Negative [facility] LDL calc ser/plasOrdered By: Jae Evans on 11-29-2024 LDL Cholesterol, Calculated 103 mg/dL [facility] Comment on above: Mawehzsuxc=295-284 m g/dL & Higher Bxsj=972 mg/dL or greater Laboratory - Chemistry and C hemistry - challengeOrdered By: Jae Evans on 11-29-2024 AST [Catalytic activity/Vol] 24 U/L <38 [facility] Lipid Profileon 11-29-2024 CHOL:HDL 2.[address] [facility] Comment on above: Performed By: #### L 501.9910, L100.0100, L4, L500.4100, L500.4050, L501.9520 #### [facility] [address] [place], [address] Cholesterol [Mass/Vol] 204 mg/dL High <=[address] [facility] Comment on above: Result Comment: Chol esterol level, Desirable <200 mg/dL Borderline high cholesterol 200-239 mg/dL High cholesterol >=240 mg/dL Recommendations of the NCEP Adult Treatment Panel for the following risk-cutoff thresholds for the [place] population. Performed By: #### L 501.9910, L100.0100, L4, L500.4100, L500.4050, L501.9520 #### [facility] [address] [place], [address] Cholesterol in HDL [Mass/Vol] 89 mg/dL Normal [facility] Comment on above: Result Comment: Maureen onal Cholesterol Education Program (NCEP) guidelines: <40 mg/dL: Low HDL-cholesterol (major risk factor for CHD) >= 60 mg/dL: High HDL-cholesterol (negative risk factor for CHD) HDL-cholesterol is affected by a number of factors, e.g. smoking, exercise, hormones, sex and age. Performed By: #### L 501.9910, L100.0100, L400, L500.4100, L500.4050, L501.9520 #### [facility] [address] [place], [address] Cholesterol in LDL [Mass/Vol] 103 mg/dL Normal [facility] Comment on above: Result Comment: Bord xcxdaa=119-393 mg/dL Higher Nmfo=418 mg/dL or greater Performed By: #### L 501.9910, L100.0100, L400.2010, L500.4100, L500.4050, L501.9520 #### [facility] [address] [place], [address] Cholesterol in VLDL [Mass/Vol] 12 mg/dL Normal 5-40 [facility] Comment on above: Performed By: #### L 501.9910, L100.0100, L400.2010, L500.4100, L500.4050, L501.9520 #### [facility] [address] [place], [address] Triglyceride [Mass/Vol] 59 mg/dL Normal [facility] Comment on above: Result Comment: The drugs N-Acetylcysteine and Metamizole may falsely depress this assay. Normal range: <150 mg/dL Borderline High: 150-199 mg/dL High: 200-499 mg/dL Very High: >500 mg/dL Performed By: #### L 501.9910, L100.0100, L400.2010, L500.4100, L500.4050, L501.9520 #### [facility] [address] [place], [address] Lymphocytes Auto (Unsp spec) [#/Vol]Ordered By: Jae Evans on 11-29-2024 Lymphocytes (Bld) [#/Vol] 1.51 10*3/uL 0.83-4.[address] [facility] Lymphocytes/100 WBC Auto (Un sp spec)Ordered By: Jae Evans on 11-29-2024 Lymphocytes/100 WBC (Bld) 31.3 % 19-41 [facility] MCV (mean corpuscular volume ) determinationOrdered By: Jae Evans on 11-29-2024 MCV (RBC) [Entitic vol] 90.7 fL 80-94 [facility] Mean corpuscular hemoglobin (MCH) determinationOrdered By: Jae Evans on 11-29-2024 MCH (RBC) [Entitic mass] 29.8 pg 27.0-32.0 [facility] Mean corpuscular hemoglobin concentration (MCHC) determinationOrdered By: Jae GilNathan on 11-29-2024 MCHC (RBC) [Mass/Vol] 32.9 g/dL 32-36 [facility] Mean platelet volume determi nationOrdered By: Jae GilNathan on 11-29-2024 Platelet mean volume (Bld) [Entitic vol] 12.0 fL 6.2-12.0 [facility] Monocyte percentageOrdered B y: Jae Evans on 11-29-2024 Monocytes/100 WBC (Bld) 8.3 % 0-10 [facility] Neutrophil percentageOrdered By: Jae Evans on 11-29-2024 Neutrophils/100 WBC (Bld) 57.7 % 47-70 [facility] Nitrite Test strip Ql (U)Ord ered By: Jae Evans on 11-29-2024 Nitrite Ql (U) Negative Negative [facility] Nucleated red blood cell per centageOrdered By: Jae Evans on 11-29-2024 Nucleated RBC/100 WBC (Bld) [Ratio] 0 % 0-5 [facility] PSA, total screeningOrdered By: Jae GilNathan on 11-29-2024 Prostate Specific Antigen Screen 0.64 ng/mL 0.02-4.00 [facility] Comment on above: This test was perfor med using the [employer] tPSA method. Measured values of a patient sample can vary depending on the testing procedure used. PSA values determined on patient samples by different testing procedures cannot be used interchangeably. If there is a change in PSA assays while monitoring therapy, sequential testing should be performed to confirm baseline values. PSA,Total - Annual Screenon 11-29-2024 PSA,TOT SCREEN 0.64 ng/mL Normal 0.02-4.00 [facility] Comment on above: Result Comment: This test was performed using the [employer] tPSA method. Measured values of a patient??sample can vary depending on the testing procedure used. PSA values determined on patient samples by different testing procedures cannot be used interchangeably. If there is a change in PSA assays while monitoring therapy, sequential testing should be performed to confirm baseline values. Performed By: #### L 501.9910, L100.0100, L400.2010, L500.4100, L500.4050, L501.9520 #### [facility] [address] [place], [address] Platelet countOrdered By: Shellie Evans on 11-29-2024 Platelets (Bld) [#/Vol] 195 10*3/uL 150-450 [facility] Potassium (Unsp spec) [Mass/ Vol]Ordered By: Jae Evans on 11-29-2024 Potassium [Moles/Vol] 4.9 mmol/L 3.3-5.1 [facility] Protein Test strip Ql (U)Ord ered By: Jae Evans on 11-29-2024 Protein Ql (U) Negative Negative [facility] RBC Auto (Bld) [#/Vol]Ordere d By: Jae Evans on 11-29-2024 RBC (Bld) [#/Vol] 4.93 10*6/uL 4.6-6.2 [facility] Screening total cholesterol/ high density lipoprotein (HDL) cholesterol ratioOrdered By: Jae Evans on 11-29-2024 Cholesterol.total/Cholest douglas in HDL [Mass ratio] 2.29 {ratio} [facility] Serum creatinine measurement (mass/volume)Ordered By: Jae Evans on 11-29-2024 Creatinine [Mass/Vol] 0.87 mg/dL 0.70-1.20 [facility] Serum globulin measurementOr dered By: Jae Evans on 11-29-2024 Globulin (S) [Mass/Vol] 2.7 g/dL 2.2-4.2 [facility] Serum glucose measurement (m ass/volume)Ordered By: Jae Evans on 11-29-2024 Glucose [Mass/Vol] 88 mg/dL 70-99 [facility] Serum or plasma alanine lebron otransferase (ALT) measurementOrdered By: Jae Evans on 11-29-2024 ALT [Catalytic activity/Vol] 25 U/L <47 [facility] Serum or plasma albumin mannie urement (mass/volume)Ordered By: Jae Evans on 11-29-2024 Albumin [Mass/Vol] 4.5 g/dL 3.5-5.0 [facility] Serum or plasma albumin/glob ulin mass ratioOrdered By: Jae Evans on 11-29-2024 Albumin/Globulin [Mass ratio] 1.7 {ratio} 0.9-2.4 [facility] Serum or plasma alkaline zulema sphatase measurementOrdered By: Jae Evans on 11-29-2024 ALP [Catalytic activity/Vol] 51 U/L 40-129 [facility] Serum or plasma calcium mannie urement (mass/volume)Ordered By: Jae Evans on 11-29-2024 Calcium [Mass/Vol] 9.7 mg/dL 7.6-11.0 [facility] Serum or plasma cholesterol in HDL measurement (mass/volume)Ordered By: Jae Evans on 11-29-2024 Cholesterol in HDL [Mass/Vol] 89 mg/dL >40 [facility] Comment on above: National Cholesterol Education Program (NCEP) guidelines:<40 mg/dL: Low HDL-cholesterol (major risk factor for CHD)>= 60 mg/dL: High HDL-cholesterol (negative risk factor for CHD)HDL-cholesterol is affected by a number of factors, e.g. smoking, exercise, hormones, sex and age. Serum or plasma cholesterol measurement (mass/volume)Ordered By: Jae Evans on 11-29-2024 Cholesterol [Mass/Vol] 204 mg/dL High <[address] [facility] Comment on above: Cholesterol level, D esirable <200 mg/dLBorderline high cholesterol 200-239 mg/dLHigh cholesterol >=240 mg/dLRecommendations of the NCEP Adult Treatment Panel for the following risk-cutoff thresholds for the [place] population. Serum or plasma urea nitroge n measurement (mass/volume)Ordered By: Jae Evans on 11-29-2024 Urea nitrogen [Mass/Vol] 16 mg/dL 4-19 [facility] Sodium levelOrdered By: Jae Evans on 11-29-2024 Sodium [Moles/Vol] 142 mmol/L 133-145 [facility] TSH DL <= 0.005 mIU/L QnOrde red By: Jae Evans on 11-29-2024 Thyroid Stimulating Hormone (TSH) 1.220 uIU/mL 0.300-4.200 [facility] Thyroid Stim Hormone (TSH)on 11-29-2024 TSH 1.220 uIU/mL Normal 0.300-4.200 [facility] Comment on above: Performed By: #### L 501.9910, L100.0100, L400.2010, L500.4100, L500.4050, L501.9520 #### [facility] [address] [place], [address] Total proteinOrdered By: Amarilis Evans on 11-29-2024 Protein [Mass/Vol] 7.2 g/dL 5.9-8.4 [facility] Triglycerides measurementOrd ered By: Jae Evans on 11-29-2024 Triglyceride [Mass/Vol] 59 mg/dL <199 [facility] Comment on above: The drugs N-Acetylcy steine and Metamizole may falsely depress this assay. Normal range: <150 mg/dLBorderline High: 150-199 mg/dLHigh: 200-499 mg/dLVery High: >500 mg/dL Urinalysis, Routine (Dipstic k)on 11-29-2024 BILIRUBIN URINE Negative Normal Negative [facility] Comment on above: Order Comment: CLEAN CATCH Performed By: #### L 501.9910, L100.0100, L400.2010, L500.4100, L500.4050, L501.9520 #### [facility] [address] [place], [address] Clarity (U) Clear Normal Clear [facility] Comment on above: Order Comment: CLEAN CATCH Performed By: #### L 501.9910, L100.0100, L400.2010, L500.4100, L500.4050, L501.9520 #### [facility] [address] [place], [address] Color (U) Yellow Normal Yellow [facility] Comment on above: Order Comment: CLEAN CATCH Performed By: #### L 501.9910, L100.0100, L400.2011, L500.4100, L500.4050, L501.9520 #### [facility] [address] [place], [address] GLUCOSE, UR Normal Normal Normal [facility] Comment on above: Order Comment: CLEAN CATCH Performed By: #### L 501.9910, L100.0100, L400.2010, L500.4100, L500.4050, L501.9520 #### [facility] [address] [place], [address] KETONE UR Negative Normal Negative [facility] Comment on above: Order Comment: CLEAN CATCH Performed By: #### L 501.9910, L100.0100, L400.2010, L500.4100, L500.4050, L501.9520 #### [facility] [address] [place], [address] LEUK ESTERASE Negative Normal Negative [facility] Comment on above: Order Comment: CLEAN CATCH Performed By: #### L 501.9910, L100.0100, L400.2010, L500.4100, L500.4050, L501.9520 #### [facility] [address] [place], [address] Nitrite Ql (U) Negative Normal Negative [facility] Comment on above: Order Comment: CLEAN CATCH Performed By: #### L 501.9910, L100.0100, L400.2010, L500.4100, L500.4050, L501.9520 #### [facility] [address] [place], [address] OCCULT BLOOD-UR Negative Normal Negative [facility] Comment on above: Order Comment: CLEAN CATCH Performed By: #### L 501.9910, L100.0100, L400.2010, L500.4100, L500.4050, L501.9520 #### [facility] [address] [place], [address] pH UR 7.0 Normal 5.0 - 8.0 [facility] Comment on above: Order Comment: CLEAN CATCH Performed By: #### L 501.9910, L100.0100, L400.2011, L500.4100, L500.4050, L501.9520 #### [facility] [address] [place], [address] PROT DIPSTX Negative Normal Negative [facility] Comment on above: Order Comment: CLEAN CATCH Performed By: #### L 501.9910, L100.0100, L400.2011, L500.4100, L500.4050, L501.9520 #### [facility] [address] [place], [address] SP.GR. DIPSTX 1.005 Normal 1.002-1.030 [facility] Comment on above: Order Comment: CLEAN CATCH Performed By: #### L 501.9910, L100.0100, L400.2010, L500.4100, L500.4050, L501.9520 #### [facility] [address] [place], [address] UROBILI Normal Normal Normal [facility] Comment on above: Order Comment: CLEAN CATCH Performed By: #### L 501.9910, L100.0100, L400.2010, L500.4100, L500.4050, L501.9520 #### [facility] [address] [place], [address] Urine blood detectionOrdered By: Jae Evans on 11-29-2024 Urine Occult Blood Negative Negative [facility] Urine clarityOrdered By: Amarilis Evnas on 11-29-2024 Clarity (U) Clear Clear [facility] Urine color determinationOrd ered By: Jae Evans on 11-29-2024 Color (U) Yellow Yellow [facility] Urine leukocyte esterase det ection by dipstickOrdered By: Jae Evans on 11-29-2024 Leukocyte esterase Test strip Ql (U) Negative Negative [facility] Urine pHOrdered By: Jae rice on 11-29-2024 pH (U) 7.0 [pH] 5.0 - 8.0 [facility] Urine specific gravity measu rementOrdered By: Jae Evans on 11-29-2024 Specific gravity (U) [Rel density] 1.005 1.002-1.030 [facility] Urobilinogen Ql (U)Ordered B y: Jae Evans on 11-29-2024 Urine Urobilinogen Normal mg/dl Normal [facility] White blood cell (WBC) count Ordered By: Jae Evans on 11-29-2024 WBC (Bld) [#/Vol] 4.8 10*3/uL 4.4-11.0 [facility] Vital Signs Date Time Vital Sign Value Performing Clinician Faci lity 11-07-2024 08:24-0500 Body height 187.[address] Elias Puri MD [facility] 01-26-2022 10:40-0400 Body temperature 98 [degF] Dr. Elias Puri Work Phone: [facility] Work Phone: 01-26-2022 10:40-0400 Diastolic blood pressure 71 mm[Hg] Dr. Elias Puri Work Phone: [facility] Work Phone: 01-26-2022 10:40-0400 Heart rate 57 /min Dr. Elias Puri Work Phone: [facility] Work Phone: 01-26-2022 10:40-0400 Respiratory rate 16 /min Dr. Elias Puri Work Phone: [facility] Work Phone: 01-26-2022 10:40-0400 SaO2% (BldA) [Mass fraction] 99 % Dr. Elias Puri Work Phone: [facility] Work Phone: 01-26-2022 10:40-0400 Systolic blood pressure 106 mm[Hg] Dr. Elias Puri Work Phone: [facility] Work Phone: 01-26-2022 09:46-0400 Body height 187.[address] Elias Puri Work Phone: [facility] Work Phone: 01-26-2022 09:46-0400 Body mass index (BMI) [Ratio] 22.4 kg/m2 Dr. Elias Puri Work Phone: [facility] Work Phone: 01-26-2022 09:46-0400 Body weight 79.[address] Elias Puri Work Phone: [facility] Work Phone: 11-23-2021 10:59-0500 Body mass index (BMI) [Ratio] 23.1 kg/m2 Dr. Elias Puri Work Phone: [facility] Work Phone: 11-23-2021 10:59-0500 Body temperature 98.1 [degF] Dr. Elias Puri Work Phone: [facility] Work Phone: 11-23-2021 10:59-0500 Body weight 81.[address] Elias Puri Work Phone: [facility] Work Phone: 11-23-2021 10:59-0500 Diastolic blood pressure 73 mm[Hg] Dr. Elias Puri Work Phone: [facility] Work Phone: 11-23-2021 10:59-0500 Heart rate 71 /min Dr. Elias Puri Work Phone: [facility] Work Phone: 11-23-2021 10:59-0500 Respiratory rate 16 /min Dr. Elias Puri Work Phone: [facility] Work Phone: 11-23-2021 10:59-0500 SaO2% (BldA) [Mass fraction] 100 % Dr. Elias Puri Work Phone: [facility] Work Phone: 11-23-2021 10:59-0500 Systolic blood pressure 122 mm[Hg] Dr. Elias Puri Work Phone: [facility] Work Phone: Encounters Encounter Date Encounter Type Care Provider Facility Start: 04-16-2025 ambulatory [facility] Facility: [facility] Start: 12-12-2024 Encounter for genera l adult medical examination without abnormal findings [facility] Start: 11-29-2024 End: 11-29-[address] Elias Puri MD [facility] Work Phone: Start: 11-29-2024 End: 11-29-[address] Jae Evans DO -Laboratory, [facility] Start: 11-29-2024 End: 11-29-2024 ambulatory [facility] Facility:[facility] Start: 09-11-2024 ambulatory [facility]amberto Pryor ity:[facility] Start: 01-26-2022 Non-patient / Non-visit Dr. Cyrus Puri Work Phone: [facility] Start: 01-26-2022 End: 01-26-2022 Admission to same day surgery center Dr. Elias Puri Work Phone: [facility] Start: 01-07-2022 End: 01-07-[address] Elias Puri Work Phone: [facility] Start: 11-23-2021 End: 11-23-2021 Emergency department patient visit Dr. Elias Puri Work Phone: [facility] Procedures Date Procedure Procedure Detail Performing Clinician Start: 01-26-2022 End: 01-26-[address] Elias Puri Work Phone: Start: 01-26-[address] Elias Puri Work Phone: Start: 11-23-2021 Plain X-ray of tibia and fibula Dr. Elias Puri Work Phone: Plan of Treatment Date Care Activity Detail Author Patient Education ED Contusion, Lower Ext remity [facility] Work Phone: Patient referral [facility] Work Phone: Immunizations Immunization Date Immunization Notes Care Provider Fa [facility] 08-05-2020 influenza, injectable,quadrivalent , preservative free, pediatric Dr. Elias Puri Work Phone: [facility] 08-05-2020 Flucelvax Quad [id number] (PF) (flu vac qs 2019(4 yr up)CD(PF)) 60 mcg ([address] Elias Puri Work Phone: [facility] Work Phone: Payers Date Payer Category Payer Self-pay [id number] 2024 Unknown [id number] 2016 Unknown [id number] Unknown [id number] Unknown [id number] Unknown [id number] Social History Date Type Detail Facility [facility] Work Phone: Start: 1975 Sex Assigned At Male [facility] Start: 11-07-2024 Tobacco smoking stat us CAIS Never smoked tobacco (finding) [facility] Start: 12-12-2024 Sex Male (finding) [facility] Mental Status Date Assessment Result Facility 01-26-2022 Cognitive function Appropriate;Drowsy [facility] Work Phone: Evaluation note Note Date & Type Note Facility Evaluation note Diagnosis Onset Date Screening for colon cancer a cute [facility] Work Phone: Evaluation note Note Date & Type Note Facility Evaluation note No assessment information availa ble [facility] Work Phone: Hospital Discharge instructions Note Date & Type Note Facility Hospital Discharge instructions [facility] Work Phone: Reason for referral (narrative) Note Date & Type Note Facility Reason for referral (narrative) No reason for referral information available [facility] Work Phone: Chief Complaint and Reason for Visit Chief Complaint FALL SCANNING PURPOSES ONLY Reason for Visit Screening for colon cancer Advance Directives No Advanced Directives Records Found Advance Directive Response Recorded Date/ Time Living Will Yes January 23, 2022 9:02am Power of Awning Assembler Yes January 23 9:02am Summary Purpose Family History No Family History Records Found Additional Source Comments Goals (unrecognized section and content) Goals may be documented in a n alternate sectionGoals may be documented in an alternate section Care Teams (unrecognized sec tion and content) Team Status: Active Member Role Status Dates Dr. Elias Puri MD Primary Care Provider Active Team Status: Inactive Member Role Status Dates Dr. Elias Puri MD Primary Care Provider Active Start: November 29, 2024 End: November 29, 2024 Dr. Jae Evans DO Attending Provider Active Start: November 29, 2024 End: November 29, 2024 (unrecognized sect ion and content) No Status Records Found INFORMATION SOURCE (unrecogn ized section and content) DATE CREATED AUTHOR 04/16/2025 [facility] FOR RECORDS PERTAINING TO PATIENTS WHO ARE OR HAVE BEEN ENROLLED IN A CHEMICAL DEPENDENCY/SUBSTANCEABUSE PROGRAM, SOME INFORMATION MAY BE OMITTED. This clinical summary was aggregated from multiple sources. Caution should be exercised in using it in the provision of clinical care. This summary normalizes information from multiple sources, and as a consequence, information in this document may materially change the coding, format and clinical context of patient data. In addition, data may be omitted in some cases. CLINICAL DECISIONS SHOULD BE BASED ON THE PRIMARY CLINICAL RECORDS. [employer] [facility]. provides no warranty or guarantee of the accuracy or completeness of information in this document.
== END | disposition home or self-care (01) ==
PROVIDERS: PCP Family Medicine; Referring Provider Family Medicine; Visit Provider Family Medicine
DX: N50.89 Other specified disorders of the male genital organs (principal)
CPT/HCPCS: 76870; 93976

== ENCOUNTER → 2025-06-15 | Outpatient (CLI) | payer OTHER, SELFPAY ==
--- NOTE | 2025-06-15 10:24 | RAD_ITS ---
PROCEDURE: CHEST PA AND LATERAL 06/15/2025 REASON FOR EXAM: COUGH, FEVER TECHNIQUE: Procedure Code: RADCXR Modality: DX Procedure: CHEST PA AND LATERAL COMPARISON: None FINDINGS: Hardware: None Heart: Normal Mediastinum: Normal Lungs: Airspace disease with air bronchograms in the right lower lobe. Scant right pleural fluid. Left lung is clear. Bones: Mild pectus excavatum. RAD/Chest PA and Lateral IMPRESSION: Right lower lobe airspace disease. Consider pneumonia. Voicemail regarding this report and its contents was left on the ordering physi rosalba's, charge nurse line at 10:40 a.m. Eastern standard time. Reading Location: [id number]
--- OUTSIDE RECORDS SUMMARY | 2025-06-15 10:57 | XMS RPT_ITS | CCD ---
Author Organization [facility] Care Team Providers Care Aluminum Molder Name Role Phone Dr. Elias Puri Primary Care Provider Dr. Elias Puri Referring Provider [phone] Nurse, Surgery Attending Provider Unavailable Dr. Maura Bryson Attending Provider Dr. Maura Bryson Other Provider Dr. Elias Puri MD Primary Care Provider Unava ilable Dr. Jae Evans DO Attending Provider Dr. Jae Evans DO Primary Care Provider Dr. Jae Evans DO Attending Provider Dr. Jae Evans DO Referring Provider Lamberto Claire Attending Unavailable Elias Puri Referring Unavailable Elias Puri Primary Care Unavailable Jae Evans Attending Unavailable Jae Evans Primary Care Unavailable Jae Evans Referring Unavailable Jae Evans Attending Unavailable Elias Puri Primary Care Unavailable Medications Current Medications Medication Drug Class(es) Dates Sig (Normalized) Sig (Original) fluticasone propionate 0.05 mg/actuat metered dose nasal spray (3 sources) Corticosteroid Start: 01-23-2022 Fluticasone Propionate (Flonase Allergy Relief) 50 mcg/actuation [place],Suspension Active 1 SPRAY INTRANASAL DAILY January 23, 2022 9:01am Start: 01-23-2022 Fluticasone Pr opionate (Flonase Allergy Relief) 50 mcg/actuation [place],Suspension Active 1 NMA INTRANASAL DAILY January 23, 2022 12:00am hyoscyamine sulfate 0.125 mg oral tablet (3 sources) Start: 01-23-2022 Hyoscyamine Ruiz lfate 0.125 mg tablet Active 0.125 mg PO NEEDED as needed for IBS January 23, 2022 12:00am Problems Problem Classification Problem Date Documented Date Episodic/Chronic Administrative/social admission (3 sources) Administrative reason for encounter; Translations: [Encounter for examination for driving license] 08-05-2020 Episodic Immunizations and screening for infectious disease (3 sources) Contact with or exposure to other viral diseases; Translations: [Exposure to COVID-19 virus] 06-14-2021 Episodic Other male genital disorders (1 source) Other specified disorders of the male genital organs; Translations: [Other specified disorders of the male genital organs] Onset: 04-19-2025 Episodic Other nervous system disorders (3 sources) Facial paresthesia; Translations: [Paresthesia of skin] 03-03-2021 Episodic Other nervous system disorders (3 sources) Paresthesia of left upper limb; Translations: [Paresthesia of skin] 03-03-2021 Episodic Other screening for suspected conditions (not mental disorders or infectious disease) (4 sources) Patient encounter status; Translations: [Encounter for screening for malignant neoplasm of colon] Episodic Superficial injury; contusion (3 sources) Contusion of lower limb; Translations: [Contusion of right lower leg, initial encounter] 12-01-2021 Episodic Results Test Name Value Interpretation Reference Range Facility Testicular with Arterial Juan won 04-16-2025 Testicular with Arterial Flow [facility] Imaging Services [address] [place] [address] [id number] Testicular with Arterial Flow MR#: [id number] Acct: [id number] Name: VALENTINENIESHA CARTER Rep #: [id number] : 1975 M 49 From: John Oden MD PCP: Dr. Jae Evans, Status: REG CLI Study: Testicular with Arterial Flow Date of Exam: Exam# [id number] Ordering Dr: Jae Evans DO PROCEDURE: TESTICULAR WITH ARTERIAL FLOW 04/16/2025 REASON FOR EXAM: TESTICULAR LUMP; Left Side TECHNIQUE: TESTICULAR WITH ARTERIAL FLOW COMPARISON: None. FINDINGS: Bilateral testes have a normal symmetric sonographic appearance. Homogeneous parenchymal echotexture. Normal symmetric blood flow bilaterally on color Doppler. Small simple appearing cystic focus within the periphery of the left testicle measuring up to 5 mm, benign. The right testicle measures 4.3 x 2.9 x 2.1 cm. The left testicle measures 4.2 x 3.2 x 2.5 cm. Bilateral epididymi have a normal symmetric appearance, with symmetric vascular flow on color Doppler. There is a simple appearing right epididymal head cyst measuring up to 0.7 cm. Normal physiologic amount of fluid around both testes. No extratesticular mass. No evidence for varicocele on either side. Mild nonspecific generalized scrotal subcutaneous edema. US/Testicular with Arterial Flow IMPRESSION: No significant abnormality. Small 5 mm simple cyst within the periphery of the left testicle, which may reflect a palpable abnormality as per the clinical history. No follow-up indicated. Reading Location: [id number] CC: Dr. Jae Evans DO Agricultural Equipment Design Engineer: Signed Normal [facility] Absolute neutrophil countOrd ered By: Jae Evans on 11-29-2024 Neutrophils (Bld) [#/Vol] 2.8 10*3/uL 2.0-7.7 [facility] Anion gap in Serum or Plasma Ordered By: Jae Evans on 11-29-2024 Anion gap [Moles/Vol] 11 mmol/L 5-15 [facility] BUN/creatinine ratioOrdered By: Jae Evans on 11-29-2024 Urea nitrogen/Creatinine [Mass ratio] 18.7 mg/mg 10-20 [facility] Basophil percentageOrdered B y: Jae Evans on 11-29-2024 Basophils/100 WBC (Bld) 0.6 % 0-1 [facility] Bilirubin Test strip Ql (U)O rdered By: Jae Evans on 11-29-2024 Bilirubin Ql (U) Negative Negative [facility] Bilirubin, totalOrdered By: Jae Evans on 11-29-2024 Bilirubin [Mass/Vol] 0.57 mg/dL 0.00-1.30 [facility] CBC W/Diff, Automatedon Absolute Lymph 1.51 X10 3/uL Normal 0.83-4.51 [facility] Comment on above: Performed By: #### L 501.9910, L100.0100, L400.2010, L500.4100, L500.4050, L501.9520 #### [facility] [address] [place], [address] Absolute Neut 2.8 X10 3/uL Normal 2.0-7.7 [facility] Comment on above: Performed By: #### L 501.9910, L100.0100, L400.2010, L500.4100, L500.4050, L501.9520 #### [facility] [address] [place], [address] Basophils/100 WBC (Bld) 0.6 % Normal 0-1 [facility] Comment on above: Performed By: #### L 501.9910, L100.0100, L400.2010, L500.4100, L500.4050, L501.9520 #### [facility] [address] [place], [address] Eosinophils/100 WBC (Bld) 1.9 % Normal 0-5 [facility] Comment on above: Performed By: #### L 501.9910, L100.0100, L400.2010, L500.4100, L500.4050, L501.9520 #### [facility] [address] [place], [address] Erythrocyte distribution width (RBC) [Ratio] 13.2 % Normal 11.6-14.6 [facility] Comment on above: Performed By: #### L 501.9910, L100.0100, L400.2010, L500.4100, L500.4050, L501.9520 #### [facility] [address] [place], [address] Hematocrit (Bld) [Volume fraction] 44.7 % Normal 40-54 [facility] Comment on above: Performed By: #### L 501.9910, L100.0100, L400.2010, L500.4100, L500.4050, L501.9520 #### [facility] [address] [place], [address] Hemoglobin (Bld) [Mass/Vol] 14.7 g/dL Normal 13.0-16.5 [facility] Comment on above: Performed By: #### L 501.9910, L100.0100, L400.2010, L500.4100, L500.4050, L501.9520 #### [facility] [address] [place], [address] IG% 0.200 Normal 0.0-0.9 [facility] Comment on above: Result Comment: IG% - Immature Granulocytes (promyelocytes, myelocytes and metamyelocytes) > 1% indicates that a LEFT SHIFT is Present. Performed By: #### L 501.9910, L100.0100, L400.2010, L500.4100, L500.4050, L501.9520 #### [facility] [address] [place], [address] Lymphocytes/100 WBC (Bld) 31.3 % Normal 19-41 [facility] Comment on above: Performed By: #### L 501.9910, L100.0100, L400.2010, L500.4100, L500.4050, L501.9520 #### [facility] [address] [place], [address] MCH (RBC) [Entitic mass] 29.8 pg Normal 27.0-32.0 [facility] Comment on above: Performed By: #### L 501.9910, L100.0100, L400.2010, L500.4100, L500.4050, L501.9520 #### [facility] [address] [place], [address] MCHC (RBC) [Mass/Vol] 32.9 g/dL Normal 32-36 [facility] Comment on above: Performed By: #### L 501.9910, L100.0100, L400.2010, L500.4100, L500.4050, L501.9520 #### [facility] [address] [place], [address] MCV (RBC) [Entitic vol] 90.7 fL Normal 80-94 [facility] Comment on above: Performed By: #### L 501.9910, L100.0100, L400.2010, L500.4100, L500.4050, L501.9520 #### [facility] [address] [place], [address] Monocytes/100 WBC (Bld) 8.3 % Normal 0-10 [facility] Comment on above: Performed By: #### L 501.9910, L100.0100, L400.2010, L500.4100, L500.4050, L501.9520 #### [facility] [address] [place], [address] Neutrophils/100 WBC (Bld) 57.7 % Normal 47-70 [facility] Comment on above: Performed By: #### L 501.9910, L100.0100, L400.2010, L500.4100, L500.4050, L501.9520 #### [facility] [address] [place], [address] Nucleated RBC (Bld) [#/Vol] 0 10*3/uL Normal 0-5 [facility] Comment on above: Performed By: #### L 501.9910, L100.0100, L400.2010, L500.4100, L500.4050, L501.9520 #### [facility] [address] [place], [address] Platelet mean volume (Bld) [Entitic vol] 12.0 fL Normal 6.2-12.0 [facility] Comment on above: Performed By: #### L 501.9910, L100.0100, L400.2010, L500.4100, L500.4050, L501.9520 #### [facility] [address] [place], [address] Platelets (Bld) [#/Vol] 195 10*3/uL Normal 150-450 [facility] Comment on above: Performed By: #### L 501.9910, L100.0100, L400.2010, L500.4100, L500.4050, L501.9520 #### [facility] [address] [place], [address] RBC (Bld) [#/Vol] 4.93 10*6/uL Normal 4.6-6.2 [facility] Comment on above: Performed By: #### L 501.9910, L100.0100, L400.2010, L500.4100, L500.4050, L501.9520 #### [facility] [address] [place], [address] RDW SD 43.5 fl Normal 35.1-43.9 [facility] Comment on above: Performed By: #### L 501.9910, L100.0100, L400.2010, L500.4100, L500.4050, L501.9520 #### [facility] [address] [place], [address] WBC (Bld) [#/Vol] 4.8 10*3/uL Normal 4.4-11.0 [facility] Comment on above: Performed By: #### L 501.9910, L100.0100, L400.2010, L500.4100, L500.4050, L501.9520 #### [facility] [address] [place], [address] Calculated very low density lipoprotein (VLDL) cholesterol measurementOrdered By: Jae Evans on 11-29-2024 VLDL Cholesterol 12 mg/dL 5-40 [facility] Carbon dioxide, total [Moles /volume] in Central venous bloodOrdered By: Jae Evans on 11-29-2024 CO2 [Moles/Vol] 27.0 mmol/L 21.0-32.0 [facility] Chloride assayOrdered By: Shellie Evans on 11-29-2024 Chloride [Moles/Vol] 104 mmol/L 98-108 [facility] Comprehensive Metabolic Prof ilon 11-29-2024 Albumin [Mass/Vol] 4.5 g/dL Normal 3.5-5.0 [facility] Comment on above: Performed By: #### L 501.9910, L100.0100, L4.2010, L500.4100, L500.4050, L501.9520 #### [facility] [address] [place], [address] Albumin/Globulin [Mass ratio] 1.7 {ratio} Normal 0.9-2.4 [facility] Comment on above: Performed By: #### L 501.9910, L100.0100, L400.2010, L500.4100, L500.4050, L501.9520 #### [facility] [address] [place], [address] ALK PHOS 51 U/L Normal 40-129 [facility] Comment on above: Performed By: #### L 501.9910, L100.0100, L400.2010, L500.4100, L500.4050, L501.9520 #### [facility] [address] [place], [address] ALT [Catalytic activity/Vol] 25 U/L Normal <=46 [facility] Comment on above: Performed By: #### L 501.9910, L100.0100, L400.2010, L500.4100, L500.4050, L501.9520 #### [facility] [address] [place], [address] AST [Catalytic activity/Vol] 24 U/L Normal <=37 [facility] Comment on above: Performed By: #### L 501.9910, L100.0100, L4, L500.4100, L500.4050, L501.9520 #### [facility] [address] [place], [address] Bilirubin [Mass/Vol] 0.57 mg/dL Normal 0.00-1.30 [facility] Comment on above: Performed By: #### L 501.9910, L100.0100, L4, L500.4100, L500.4050, L501.9520 #### [facility] [address] [place], [address] BUN/CRE 18.7 RATIO Normal 10-20 [facility] Comment on above: Performed By: #### L 501.9910, L1.99, L4, L500.4100, L500.4050, L501.9520 #### [facility] [address] [place], [address] Calcium [Mass/Vol] 9.7 mg/dL Normal 7.6-11.0 [facility] Comment on above: Performed By: #### L 501.9910, L100.0, L4, L500.4100, L500.4050, L501.9520 #### [facility] [address] [place], [address] Chloride [Moles/Vol] 104 mmol/L Normal 98-108 [facility] Comment on above: Performed By: #### L 501.9910, L100.0100, L4, L500.4100, L500.4050, L501.9520 #### [facility] [address] [place], [address] CO2 [Moles/Vol] 27.0 mmol/L Normal 21.0-32.0 [facility] Comment on above: Performed By: #### L 501.9910, L100.0100, L400.2010, L500.4100, L500.4050, L501.9520 #### [facility] [address] [place], [address] Creatinine [Mass/Vol] 0.87 mg/dL Normal 0.70-1.20 [facility] Comment on above: Performed By: #### L 501.9910, L100.0100, L400.2010, L500.4100, L500.4050, L501.9520 #### [facility] [address] [place], [address] GAP 11 Normal 5-15 [facility] Comment on above: Performed By: #### L 501.9910, L100.0100, L400.2010, L500.4100, L500.4050, L501.9520 #### [facility] [address] [place], [address] GFR/1.73 sq M.predicted among non-blacks MDRD (S/P/Bld) [Vol rate/Area] 105 mL/min/{1.73_m2} Normal >60 [facility] Comment on above: Result Comment: mL/m in/1.73m2 CKD-EPI Creatinine Equation (2020) Performed By: #### L 501.9910, L100.0100, L400.2010, L500.4100, L500.4050, L501.9520 #### [facility] [address] [place], [address] Globulin (S) [Mass/Vol] 2.7 g/dL Normal 2.2-4.2 [facility] Comment on above: Performed By: #### L 501.9910, L100.0100, L400.2010, L500.4100, L500.4050, L501.9520 #### [facility] [address] [place], [address] Glucose [Mass/Vol] 88 mg/dL Normal 70-99 [facility] Comment on above: Performed By: #### L 501.9910, L100.0100, L400.2010, L500.4100, L500.4050, L501.9520 #### [facility] [address] [place], [address] Potassium [Moles/Vol] 4.9 mmol/L Normal 3.3-5.1 [facility] Comment on above: Performed By: #### L 501.9910, L100.0100, L400.2010, L500.4100, L500.4050, L501.9520 #### [facility] [address] [place], [address] Sodium [Moles/Vol] 142 mmol/L Normal 133-145 [facility] Comment on above: Performed By: #### L 501.9910, L100.0100, L400.2010, L500.4100, L500.4050, L501.9520 #### [facility] [address] [place], [address] T PROT 7.2 g/dL Normal 5.9-8.4 [facility] Comment on above: Performed By: #### L 501.9910, L100.0100, L4.2010, L500.4100, L500.4050, L501.9520 #### [facility] [address] [place], [address] Urea nitrogen [Mass/Vol] 16 mg/dL Normal 4-19 [facility] Comment on above: Performed By: #### L 501.9910, L100.0100, L400.2010, L500.4100, L500.4050, L501.9520 #### [facility] [address] [place], [address] Eosinophil percentageOrdered By: Jae Evans on 11-29-2024 Eosinophils/100 WBC (Bld) 1.9 % 0-5 [facility] Erythrocyte distribution wid th ratioOrdered By: Jae Evans on 11-29-2024 Erythrocyte distribution width (RBC) [Ratio] 13.2 % 11.6-14.6 [facility] Erythrocyte distribution wid th standard deviationOrdered By: Jae Evans on 11-29-2024 Erythrocyte distribution width (RBC) [Entitic vol] 43.5 fL 35.1-43.9 [facility] GFR/1.73 sq M.predicted abbi g non-blacks MDRD (S/P/Bld) [Vol rate/Area]Ordered By: Jae Evans on 11-29-2024 Estimated GFR (MDRD) Non-Af Amer 105 >60 [facility] Comment on above: mL/min/1.73m2 CKD-EP I Creatinine Equation (2020) Glucose Ql (U)Ordered By: Shellie Evans on 11-29-2024 Urine Glucose (UA) Normal mg/dl Normal [facility] Hematocrit Auto (Bld) [Volum e fraction]Ordered By: Jae Evans on 11-29-2024 Hematocrit (Bld) [Volume fraction] 44.7 % 40-54 [facility] Hemoglobin measurementOrdere d By: Jae Evans on 11-29-2024 Hemoglobin (Bld) [Mass/Vol] 14.7 g/dL 13.0-16.5 [facility] Immature granulocytes/100 WB C Auto (Bld)Ordered By: Jae Evans on 11-29-2024 Immature granulocytes/100 WBC (Bld) 0.200 % 0.0-0.9 [facility] Comment on above: IG% - Immature Granu locytes (promyelocytes, myelocytes and metamyelocytes) > 1% indicates that a LEFT SHIFT is Present. Ketones Test strip Ql (U)Ord ered By: Jae Evans on 11-29-2024 Ketones Ql (U) Negative Negative [facility] LDL calc ser/plasOrdered By: Jae Evans on 11-29-2024 LDL Cholesterol, Calculated 103 mg/dL [facility] Comment on above: [place]=453-340 m g/dL & Higher Lxbg=771 mg/dL or greater Laboratory - Chemistry and C hemistry - challengeOrdered By: Jae Evans on 11-29-2024 AST [Catalytic activity/Vol] 24 U/L <38 [facility] Lipid Profileon 11-29-2024 CHOL:HDL 2.29 Normal [facility] Comment on above: Performed By: #### L 501.9910, L100.0100, L4, L500.4100, L500.4050, L501.9520 #### [facility] [address] [place], [address] Cholesterol [Mass/Vol] 204 mg/dL High <=200 [facility] Comment on above: Result Comment: Chol esterol level, Desirable <200 mg/dL Borderline high cholesterol 200-239 mg/dL High cholesterol >=240 mg/dL Recommendations of the NCEP Adult Treatment Panel for the following risk-cutoff thresholds for the [place] population. Performed By: #### L 501.9910, L100.0100, L4, L500.4100, L500.4050, L501.9520 #### [facility] [address] [place], [address] Cholesterol in HDL [Mass/Vol] 89 mg/dL Normal [facility] Comment on above: Result Comment: Maureen onal Cholesterol Education Program (NCEP) guidelines: <40 mg/dL: Low HDL-cholesterol (major risk factor for CHD) >= 60 mg/dL: High HDL-cholesterol (negative risk factor for CHD) HDL-cholesterol is affected by a number of factors, e.g. smoking, exercise, hormones, sex and age. Performed By: #### L 501.9910, L100.0100, L400, L500.4100, L500.4050, L501.9520 #### [facility] [address] [place], [address] Cholesterol in LDL [Mass/Vol] 103 mg/dL Normal [facility] Comment on above: Result Comment: Bord euxeen=395-358 mg/dL Higher Dmhi=692 mg/dL or greater Performed By: #### L 501.9910, L100.0100, L400.2010, L500.4100, L500.4050, L501.9520 #### [facility] [address] [place], [address] Cholesterol in VLDL [Mass/Vol] 12 mg/dL Normal 5-40 [facility] Comment on above: Performed By: #### L 501.9910, L100.0100, L400.2010, L500.4100, L500.4050, L501.9520 #### [facility] [address] [place], [address] Triglyceride [Mass/Vol] 59 mg/dL Normal [facility] Comment on above: Result Comment: The drugs N-Acetylcysteine and Metamizole may falsely depress this assay. Normal range: <150 mg/dL Borderline High: 150-199 mg/dL High: 200-499 mg/dL Very High: >500 mg/dL Performed By: #### L 501.9910, L100.0100, L400.2010, L500.4100, L500.4050, L501.9520 #### [facility] [address] [place], [address] Lymphocytes Auto (Unsp spec) [#/Vol]Ordered By: Jae Evans on 11-29-2024 Lymphocytes (Bld) [#/Vol] 1.51 10*3/uL 0.83-4.5 1 [facility] Lymphocytes/100 WBC Auto (Un sp spec)Ordered By: Jae Evans on 11-29-2024 Lymphocytes/100 WBC (Bld) 31.3 % 19-41 [facility] MCV (mean corpuscular volume ) determinationOrdered By: Jae Evans on 11-29-2024 MCV (RBC) [Entitic vol] 90.7 fL 80-94 [facility] Mean corpuscular hemoglobin (MCH) determinationOrdered By: Jae Evans on 11-29-2024 MCH (RBC) [Entitic mass] 29.8 pg 27.0-32.0 [facility] Mean corpuscular hemoglobin concentration (MCHC) determinationOrdered By: Jae Nathan on 11-29-2024 MCHC (RBC) [Mass/Vol] 32.9 g/dL 32-36 [facility] Mean platelet volume determi nationOrdered By: Jae Evans on 11-29-2024 Platelet mean volume (Bld) [Entitic vol] 12.0 fL 6.2-12.0 [facility] Monocyte percentageOrdered B y: Jae Evans on 11-29-2024 Monocytes/100 WBC (Bld) 8.3 % 0-10 [facility] Neutrophil percentageOrdered By: Jae Evans on 11-29-2024 Neutrophils/100 WBC (Bld) 57.7 % 47-70 [facility] Nitrite Test strip Ql (U)Ord ered By: Jae Evans on 11-29-2024 Nitrite Ql (U) Negative Negative [facility] Nucleated red blood cell per centageOrdered By: Jae Evans on 11-29-2024 Nucleated RBC/100 WBC (Bld) [Ratio] 0 % 0-5 [facility] PSA, total screeningOrdered By: Jae Evans on 11-29-2024 Prostate Specific Antigen Screen 0.64 ng/mL 0.02-4.00 [facility] Comment on above: This test was perfor [...] 11-29-2024 PSA,TOT SCREEN 0.64 ng/mL Normal 0.02-4.00 [facility] Comment on above: Result Comment: This test [...] 501.9910, L100.0100, L400.2010, L500.4100, L500.4050, L501.9520 #### [facility] [address] [place], [address] Platelet countOrdered By: Shellie Evans on 11-29-2024 Platelets (Bld) [#/Vol] 195 10*3/uL 150-450 [facility] Potassium (Unsp spec) [Mass/ Vol]Ordered By: Jae Evans on 11-29-2024 Potassium [Moles/Vol] 4.9 mmol/L 3.3-5.1 [facility] Protein Test strip Ql (U)Ord ered By: Jae Evans on 11-29-2024 Protein Ql (U) Negative Negative [facility] RBC Auto (Bld) [#/Vol]Ordere d By: Jae Evans on 11-29-2024 RBC (Bld) [#/Vol] 4.93 10*6/uL 4.6-6.2 [facility] Screening total cholesterol/ high density lipoprotein (HDL) cholesterol ratioOrdered By: Jae Evans on 11-29-2024 Cholesterol.total/Cholest douglas in HDL [Mass ratio] 2.29 {ratio} [facility] Serum creatinine measurement (mass/volume)Ordered By: Jae Evans on 11-29-2024 Creatinine [Mass/Vol] 0.87 mg/dL 0.70-1.20 [facility] Serum globulin measurementOr dered By: Jae Evans on 11-29-2024 Globulin (S) [Mass/Vol] 2.7 g/dL 2.2-4.2 [facility] Serum glucose measurement (m ass/volume)Ordered By: Jae Evans on 11-29-2024 Glucose [Mass/Vol] 88 mg/dL 70-99 [facility] Serum or plasma alanine lebron otransferase (ALT) measurementOrdered By: Jae Evans on 11-29-2024 ALT [Catalytic activity/Vol] 25 U/L <47 [facility] Serum or plasma albumin mannie urement (mass/volume)Ordered By: Jae Evans on 11-29-2024 Albumin [Mass/Vol] 4.5 g/dL 3.5-5.0 [facility] Serum or plasma albumin/glob ulin mass ratioOrdered By: Jae Evans on 11-29-2024 Albumin/Globulin [Mass ratio] 1.7 {ratio} 0.9-2.4 [facility] Serum or plasma alkaline zulema sphatase measurementOrdered By: Jae Evans on 11-29-2024 ALP [Catalytic activity/Vol] 51 U/L 40-129 [facility] [facility] Serum or plasma calcium mannie urement (mass/volume)Ordered By: Jae Evans on 11-29-2024 Calcium [Mass/Vol] 9.7 mg/dL 7.6-11.0 [facility] Serum or plasma cholesterol in HDL measurement (mass/volume)Ordered By: Jae Evans on 11-29-2024 Cholesterol in HDL [Mass/Vol] 89 mg/dL >40 [facility] Comment on above: National Cholesterol Education Program (NCEP) guidelines:<40 mg/dL: Low HDL-cholesterol (major risk factor for CHD)>= 60 mg/dL: High HDL-cholesterol (negative risk factor for CHD)HDL-cholesterol is affected by a number of factors, e.g. smoking, exercise, hormones, sex and age. Serum or plasma cholesterol measurement (mass/volume)Ordered By: Jae Evans on 11-29-2024 Cholesterol [Mass/Vol] 204 mg/dL High <201 [facility] Comment on above: Cholesterol level, D esirable <200 mg/dLBorderline high cholesterol 200-239 mg/dLHigh cholesterol >=240 mg/dLRecommendations of the NCEP Adult Treatment Panel for the following risk-cutoff thresholds for the [place] population. Serum or plasma urea nitroge n measurement (mass/volume)Ordered By: Jae Evans on 11-29-2024 Urea nitrogen [Mass/Vol] 16 mg/dL 4-19 [facility] Sodium levelOrdered By: Jae Evans on 11-29-2024 Sodium [Moles/Vol] 142 mmol/L 133-145 [facility] TSH DL <= 0.005 mIU/L QnOrde red By: Jae Evans on 11-29-2024 Thyroid Stimulating Hormone (TSH) 1.220 uIU/mL 0.300-4.200 [facility] Thyroid Stim Hormone (TSH)on 11-29-2024 TSH 1.220 uIU/mL Normal 0.300-4.200 [facility] Comment on above: Performed By: #### L 501.9910, L100.0100, L400.2010, L500.4100, L500.4050, L501.9520 #### [facility] [address] [place], [address] Total proteinOrdered By: Amarilis Evans on 11-29-2024 Protein [Mass/Vol] 7.2 g/dL 5.9-8.4 [facility] Triglycerides measurementOrd ered By: Jae Evans on 11-29-2024 Triglyceride [Mass/Vol] 59 mg/dL <199 [facility] Comment on above: The drugs N-Acetylcy steine and Metamizole may falsely depress this assay. Normal range: <150 mg/dLBorderline High: 150-199 mg/dLHigh: 200-499 mg/dLVery High: >500 mg/dL Urinalysis, Routine (Dipstic k)on 11-29-2024 BILIRUBIN URINE Negative Normal Negative [facility] Comment on above: Order Comment: CLEAN CATCH Performed By: #### L 501.9910, L100.0100, L400.2010, L500.4100, L500.4050, L501.9520 #### [facility] [address], [address] Clarity (U) Clear Normal Clear [facility] Comment on above: Order Comment: CLEAN CATCH Performed By: #### L 501.9910, L100.0100, L400.2010, L500.4100, L500.4050, L501.9520 #### [facility] [address] [place], [address] Color (U) Yellow Normal Yellow [facility] Comment on above: Order Comment: CLEAN CATCH Performed By: #### L 501.9910, L100.0100, L400.2011, L500.4100, L500.4050, L501.9520 #### [facility] [address] [place], [address] GLUCOSE, UR Normal Normal Normal [facility] Comment on above: Order Comment: CLEAN CATCH Performed By: #### L 501.9910, L100.0100, L400.2010, L500.4100, L500.4050, L501.9520 #### [facility] [address] [place], [address] KETONE UR Negative Normal Negative [facility] Comment on above: Order Comment: CLEAN CATCH Performed By: #### L 501.9910, L100.0100, L400.2010, L500.4100, L500.4050, L501.9520 #### [facility] [address] [place], [address] LEUK ESTERASE Negative Normal Negative [facility] Comment on above: Order Comment: CLEAN CATCH Performed By: #### L 501.9910, L100.0100, L400.2010, L500.4100, L500.4050, L501.9520 #### [facility] [address] [place], [address] Nitrite Ql (U) Negative Normal Negative [facility] Comment on above: Order Comment: CLEAN CATCH Performed By: #### L 501.9910, L100.0100, L400.2010, L500.4100, L500.4050, L501.9520 #### [facility] [address] [place], [address] OCCULT BLOOD-UR Negative Normal Negative [facility] Comment on above: Order Comment: CLEAN CATCH Performed By: #### L 501.9910, L100.0100, L400.2010, L500.4100, L500.4050, L501.9520 #### [facility] [address] [place], [address] pH UR 7.0 Normal 5.0 - 8.0 [facility] Comment on above: Order Comment: CLEAN CATCH Performed By: #### L 501.9910, L100.0100, L400.2011, L500.4100, L500.4050, L501.9520 #### [facility] [address] [place], [address] PROT DIPSTX Negative Normal Negative [facility] Comment on above: Order Comment: CLEAN CATCH Performed By: #### L 501.9910, L100.0100, L400.2011, L500.4100, L500.4050, L501.9520 #### [facility] [address] [place], [address] SP.GR. DIPSTX 1.005 Normal 1.002-1.030 [facility] Comment on above: Order Comment: CLEAN CATCH Performed By: #### L 501.9910, L100.0100, L400.2010, L500.4100, L500.4050, L501.9520 #### [facility] [address] [place], [address] UROBILI Normal Normal Normal [facility] Comment on above: Order Comment: CLEAN CATCH Performed By: #### L 501.9910, L100.0100, L400.2010, L500.4100, L500.4050, L501.9520 #### [facility] [address] [place], [address] Urine blood detectionOrdered By: Jae Evans on 11-29-2024 Urine Occult Blood Negative Negative [facility] Urine clarityOrdered By: Amarilis Evans on 11-29-2024 Clarity (U) Clear Clear [facility] Urine color determinationOrd ered By: Jae Evans on 11-29-2024 Color (U) Yellow Yellow [facility] Urine leukocyte esterase det ection by dipstickOrdered By: Jae Evans on 11-29-2024 Leukocyte esterase Test strip Ql (U) Negative Negative [facility] Urine pHOrdered By: Jae Gilsharita rosenbergchung on 11-29-2024 pH (U) 7.0 [pH] 5.0 - 8.0 [facility] Urine specific gravity measu rementOrdered By: Jae Evans on 11-29-2024 Specific gravity (U) [Rel density] 1.005 1.002-1.030 [facility] Urobilinogen Ql (U)Ordered B y: Jae Evans on 11-29-2024 Urine Urobilinogen Normal mg/dl Normal [facility] White blood cell (WBC) count Ordered By: Jae Evans on 11-29-2024 WBC (Bld) [#/Vol] 4.8 10*3/uL 4.4-11.0 [facility] Vital Signs Date Time Vital Sign Value Performing Clinician Faci lity 11-07-2024 08:24-0500 Body height 187.[address] Elias Puri MD [facility] 01-26-2022 10:40-0400 Body temperature 98 [degF] Dr. Elias Puir Work Phone: [facility] Work Phone: 01-26-2022 10:40-0400 Diastolic blood pressure 71 mm[Hg] Dr. Elias Puri Work Phone: [facility] Work Phone: 01-26-2022 10:40-0400 Heart rate 57 /min Dr. Elias Puri Work Phone: [facility] Work Phone: 01-26-2022 10:40-0400 Respiratory rate 16 /min Dr. Elias Puri Work Phone: [facility] Work Phone: 01-26-2022 10:40-0400 SaO2% (BldA) [Mass fraction] 99 % Dr. Elias Puri Work Phone: [facility] Work Phone: 01-26-2022 10:40-0400 Systolic blood pressure 106 mm[Hg] Dr. Elias Puri Work Phone: [facility] Work Phone: 01-26-2022 09:46-0400 Body height 187.[address] Elias Puri Work Phone: [facility] Work Phone: 01-26-2022 09:46-0400 Body mass index (BMI) [Ratio] 22.4 kg/m2 Dr. Elias Puri Work Phone: [facility] Work Phone: 01-26-2022 09:46-0400 Body weight 79.[address] Elias Puri Work Phone: [facility] Work Phone: 11-23-2021 10:59-0500 Body mass index (BMI) [Ratio] 23.1 kg/m2 Dr. Elias Puri Work Phone: [facility] Work Phone: 11-23-2021 10:59-0500 Body temperature 98.1 [degF] Dr. Elias Puri Work Phone: [facility] Work Phone: 11-23-2021 10:59-0500 Body weight 81.[address] Elias Puri Work Phone: [facility] Work Phone: 11-23-2021 10:59-0500 Diastolic blood pressure 73 mm[Hg] Dr. Elias Puri Work Phone: [facility] Work Phone: 11-23-2021 10:59-0500 Heart rate 71 /min Dr. Elias Puri Work Phone: [facility] Work Phone: 11-23-2021 10:59-0500 Respiratory rate 16 /min Dr. Elias Puri Work Phone: [facility] Work Phone: 11-23-2021 10:59-0500 SaO2% (BldA) [Mass fraction] 100 % Dr. Elias Puri Work Phone: [facility] Work Phone: 11-23-2021 10:59-0500 Systolic blood pressure 122 mm[Hg] Dr. Elias Puri Work Phone: [facility] Work Phone: Encounters Encounter Date Encounter Type Care Provider Facility Start: 04-16-2025 End: 04-16-[address] Jae Evans DO Work Phone: -Ultrasound [facility] Start: 04-16-2025 End: 04-16-[address] Jae Evans DO -Ultrasound [facility] Work Phone: Start: 04-16-2025 End: 04-16-2025 ambulatory Jae GilNathan Facility:[facility] Start: 12-12-2024 Encounter for genera l adult medical examination without abnormal findings [facility] Start: 11-29-2024 End: 11-29-[address] Elias Puri MD [facility] Work Phone: Start: 11-29-2024 End: 11-29-[address] Jae Evans DO -[facility] Start: 11-29-2024 End: 11-29-[facility] Start: 09-11-2024 ambulatory Lamberto Pryor ity:[facility] Start: 01-26-2022 Non-patient / Non-visit Dr. Cyrus Puri Work Phone: [facility] Start: 01-26-2022 End: 01-26-2022 Admission to same day surgery center Dr. Elias Puri Work Phone: [facility]-Endoscopy Start: 01-07-2022 End: 01-07-[address] Elias Puri Work Phone: [facility] Start: 11-23-2021 End: 11-23-2021 Emergency department patient visit Dr. Elias Puri Work Phone: [facility]-Emergency Department Procedures Date Procedure Procedure Detail Performing Clinician Start: 04-16-2025 Ultrasound of scrotu m with Doppler and color flow imaging Dr. Jae Evans DO Work Phone: Start: 01-26-2022 End: 01-26-[address] Elias Puri Work Phone: Start: 01-26-[address] Elias Puri Work Phone: Start: 11-23-2021 Plain X-ray of tibia and fibula Dr. Elias Puri Work Phone: Plan of Treatment Date Care Activity Detail Author Patient Education ED Contusion, Lower Ext remity [facility] Work Phone: Patient referral [facility] Work Phone: Immunizations Immunization Date Immunization Notes Care Provider Fa [facility] 08-05-2020 influenza, injectable,quadrivalent , preservative free, pediatric Dr. Elias Puri Work Phone: [facility] 08-05-2020 Flucelvax Quad [id number] (PF) (flu vac qs 2020(4 yr up)CD(PF)) 60 mcg ([address] Elias Puri Work Phone: [facility] Work Phone: Payers Date Payer Category Payer Unknown [id number] 2024 Self-pay [id number] 2024 Unknown [id number] 2016 Unknown [id number] Unknown [id number] Unknown [id number] Unknown [id number] Social History Date Type Detail Facility Start: [facility]26[facility]22 [facility] Work Phone: Start: 1975 Sex Assigned At Male [facility] Start: 11-07-2024 [facility] (finding) [facility] Start: 12-12-2024 Sex Male (finding) [facility] Mental Status Date Assessment Result Facility 01-26-2022 Cognitive function Appropriate;Drowsy [facility] Work Phone: Radiology Diagnostic study note 04-16-2025 Note Date & Type Note Facility 04-16-2025 Radiology Diagnostic study note [facility] Imaging Services [address] [place], [place] [id number] Testicular with Arterial Flow MR#: [id number] Acct: [id number] Name: NIESHA VALENTINE Rep #: [id number] : 1975 M 49 From: Jerson Oden MD PCP: Dr. Jae Evans DO Status: REG CLI Study:Testicular with Arterial Flow Date of E xam: 04/16/25 Exam# [id number] Ordering Dr: Jae Evans DO PROCEDURE: TESTICULAR WITH ARTERIAL FLOW 04/16/2025 REASON FOR EXAM: TESTICULAR LUMP; Left Side TECHNIQUE: TESTICULAR WITH ARTERIAL FLOW COMPARISON: None. FINDINGS: Bilateral testes have a normal symmetric sonographic appearance. Homogeneous parenchymal echotexture. Normal symmetric blood flow bilaterally on color Doppler. Small simple appearing cystic focus within the periphery of the left testicle measuring up to 5 mm, benign. The right testicle measures 4.3 x 2.9 x 2.1 cm. The left testicle measures 4.2 x 3.2 x 2.5 cm. Bilateral epididymi have a normal symmetric appearance, with symmetric vascular flow on color Doppler. There is a simple appearing right epididymal head cyst measuring up to 0.7 cm. Normal physiologic amount of fluid around both testes. No extratesticular mass. No evidence for varicocele on either side. Mild nonspecific generalized scrotal subcutaneous edema. US/Testicular with Arterial Flow IMPRESSION: No significant abnormality. Small 5 mm simple cyst within the periphery of the left testicle, which may reflect a palpable abnormality as per the clinical history. No follow-up indicated. Reading Location: [id number] CC: Dr. 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: Signed [facility] Evaluation note Note Date & Type Note Facility Evaluation note Diagnosis Onset Date Screening for colon cancer a cute [facility] Work Phone: Evaluation note Note Date & Type Note Facility Evaluation note No assessment information availa ble [facility] Work Phone: Hospital Discharge instructions Note Date & Type Note Facility Hospital Discharge instructions [facility] Work Phone: Reason for referral (narrative) Note Date & Type Note Facility Reason for referral (narrative) No reason for referral information available [facility] Work Phone: Chief Complaint and Reason for Visit Chief Complaint FALL SCANNING PURPOSES ONLY Reason for Visit Screening for colon cancer Chief Complaint Admit Date TESTICULAR LUMP April 16, 2025 8:42 am Advance Directives No Advanced Directives Records Found Advance Directive Response Recorded Date/ Time Living Will Yes January 23, 2022 9:02am Power of Ese Teacher Yes January 23 9:02am Summary Purpose Family History No Family History Records Found Additional Source Comments Goals (unrecognized section and content) Goals may be documented in a n alternate sectionGoals may be documented in an alternate sectionGoals may be documented in an [...] November 29, 2024 End: November 29, 2024 Team Status: Active Member Role/Relationship Status Dates Dr. Jae Evans DO Primary Care Provider Active Team Status: Inactive Member Role/Relationship Status Dates Dr. Jae Evans DO Primary Care Provider Active Start: April 16, 2025 End: April 16, 2025 Dr. Jae Evans DO Attending Provider Active Start: April 16, 2025 End: April 16, 2025 Dr. Jae Evans DO Referring Provider Active Start: April 16, 2025 End: April 16, 2025 (unrecognized sect ion and content) No Status Records Found INFORMATION SOURCE (unrecogn ized section and content) DATE CREATED AUTHOR 04/21/2025 [facility] FOR RECORDS PERTAINING TO [...] BE BASED ON THE PRIMARY CLINICAL RECORDS. [employer] [facility]. provides no warranty or guarantee of the accuracy or completeness of information in this document.
== END | disposition home or self-care (01) ==
LOC: MTRAD 10:22
PROVIDERS: PCP Family Medicine; Referring Provider Family Medicine; Visit Provider Family Medicine
DX: R05.9 Cough, unspecified (principal); R06.2 Wheezing
CPT/HCPCS: 71046